=== PATIENT | female | born 1945 | race Caucasian/White ===

== ENCOUNTER 2021-04-15 10:33 | Inpatient (IN) ==
[2021-04-15] MEDS ORDERED: SODIUM CHLORIDE 0.9% 250 ML IV PRN (11:18)
--- NOTE | 2021-04-15 11:28 | Emergency Department Note ---
Impression & Plan Acute on chronic anemia, Pleural effusion, Chronic kidney failure, Abnormal ECG, Chest pain ED Provider Note Name: WILBERT FIGUEROA Age: 76 Sex: F Arrives Via: Ambulance Informant: Patient, Transfer paperwork, Dr Canales of Rehab ED Provider: Kit Kellogg MD Chief Complaint: Weakness Impression: As per Impressions above Medical Decision Makin yr old female with extensive PMH who has never been to this facility before arrives from local Rehab facility for evaluation of anemia. Patient with episodes of chest pain and worsening weakness this morning, found to have anemia and sent here for evaluation. She is in no current discomfort nor has any comp laints. She is quite pale and deconditioned. Patient with bowel surgery last month, complicated by renal failure requiring dialysis, and then apparently iliac artery stenosis, all of which leading to hospitalization at [facility] for the last month. She notes at least 2 episodes requiring dialysis while at [facility], though no reported bleeding nor blood in stool. Labs here confirm her anemia. In setting of chest pain earlier, significant anemia, and her medical history I do feel transfusion indicated emergently and patient consents to this here. She was given 1 U PRBC ordered, and hospitalist consulted who will manage lasix/dialysis. I will not that while she has effusion, she is breathing comfortably and in no respiratory distress. Patient has no chest pain at this time, though her EKG is concerning for inverted T waves, though no previous available for comparison. Obviously would avoid an ticoagulation, but this further makes clear the need for transfusion. Prior Medical Record and Triage/Nursing Notes reviewed by Me Additional history obtained from chart Differentials:Infection, dehydration, metabolic abnormality, hypo/hyperglycemia, electrolyte disturbance, anemia, hypoxia, cardiac sources, intracerebral event, toxicologic, neurologic, as well as other pathologies. Vital Signs: reviewed and remarkable for HTN Interventions: 1 Unit PRBC IV Labs:Reviewed and remarkable for anemia Imaging:one view chest xray bilateral, R>L pulmonary effusions with congestive findings. EKG:Per My Interpretation: Indication Chest pain: NSR 66 bpm, qtc 467 diffuse T wave inversions. No Ectopy. No previous for comparison Cardiac/Tele Monitoring: Cardiac Monitoring: An Order was placed for continuous cardiac monitoring. The monitor shows a rate of 60 with a normal sinus rhythm. Consults:Dr Fredy Chen Hospitalist Plan: Disposition:Hospitalization. Condition: Fair History of Present Illness:76-year-old female with extensive past medical history arrives from local rehab facility for evaluation. Patient is here due to generalized weakness. According to patient and her physician patient is complaining of worsening weakness and episodes of chest discomfort. Per patient and chart it appears patient was admitted to [facility] just after [place] this February for evaluation of abdominal issue. She reportedly had an exploratory laparotomy for which she says bowel was removed. She states after this she required dialysis and has been on dialysis since then. Since then she has been had continuous issues with her anemia and has had multiple transfusions. Patient also notes that she has been dealing with an iliac artery thrombosis but reports that this did not have surgery on it quite yet. She was hospitalized until yesterday when she was transferred to [facility]. This morning she was complaining of weakness and episodic chest pains. Labs reveal she had a hemoglobin of 6. Decision was made to send to emergency department for further evaluation and management. Per physician at rehab the concern was that patient has severe fluid issues, requires dialysis and may require multiple units of blood. They feel that this management would not be able to be done at an [facility] and thus was sent for hospitalization and further management. On evaluation patient states she just feels tired and weak. She notes chest pain earlier but states she feels fine now. She says she has chronic shortness of breath which is unchanged from baseline. She has no current abdominal pain, nausea, vomiting, back pain, leg pain, swelling, headache, fevers, chills, cough, shortness of breath, nausea, vomiting or other symptoms. She denies any current pains. Patient has had no medications prior to arrival. Exertion seems to make things worse and rest makes them better. Patient states she is comfortable with transfusions and has no hesitation with getting a transfusion if necessary. ROS: See above HPI for pertinent positives & negatives. A total of 10 systems reviewed and were otherwise negative. Past Medical History:CAD, COPD, chronic oxygen requirement, GERD, hypertension, hyper triglyceridemia, hypothyroid, skin cancer, subclavian artery stenosis, ulcerative colitis, iliac artery thrombosis, depression, anxiety Past Surgical History:Exploratory laparotomy March 04, 2021, dialysis catheter placement arterial stents cataract surgery, Mohs, tympanostomy, renal artery catheter placements, thromboendarterectomy Family History:CAD, hypertension, diabetes Social History:Previous smoker quit 2001, no drug, no alcohol use Home Medications:See Below Allergies:Amitriptyline, tramadol, spironolactone, Cipro, hydrochlorothiazide, nitrofurantoin, Percocet Vitals:Blood Pressure: 136/62, Pulse 66, RR 19, T 37C, O2 93% on RA Physical Exam: GENERAL: Patient is pale/tired appearing and in no distress. Generalized weakness EYES: No scleral icterus, unremarkable pupils. ENT: Mucous membranes moist, no nasal congestion. NECK: No masses appreciated, nomeningismus, trachea is midline. RESPIRATORY: No dyspnea. Clear to auscultation and equal bilaterally. No wheeze, no rhonchi. CARDIOVASCULAR: Regular rate and rhythm.No murmurs, rubs, gallops appreciated. GASTROINTESTINAL: Vertical mid abdomen surgical incision healing well, no stitches/mine in place. Abdomen soft, non-tender, no peritonitis.Bowel sounds positive.No masses appreciated. BACK: No midline tenderness, no CVA tenderness EXTREMITIES: Normal motion all extremities, no cyanosis, no edema. NEUROLOGIC: Alert and oriented, no acute motor or sensory deficits, no focal weakness, cranial nerves grossly intact. SKIN: No rash, no jaundice, no diaphoresis. PSYCH: Appropriate GCS: 15 ED Course: Times/Reassessments: multiple, stable, and comfortable. Agreeable to transfusion Critical Care: I have personally spent 32 minutes of critical care time in the direct management of this patient. Acute anemia with chest pain and EKG abnormalities requiring blood transfusion. This was a life/limb threatening event. This 32 minutes is in excess of all separately billable procedures. Kit Kellogg MD Past Med/Surg History Social History Smoking Status: Former smoker Preferred Language: Russian Feels Safe at Home: Yes Allergies Allergies Allergy/AdvReac Type Severity Reaction Status Date / Time tramadol Allergy Unresponsiv Unverified 04/15/21 11:26 e acetaminophen [From Percocet] AdvReac Hypotension Unverified 04/15/21 11:26 amitriptyline AdvReac Unresponsiv Unverified 04/15/21 11:26 e ciprofloxacin AdvReac Hives Unverified 04/15/21 11:26 hydrochlorothiazide AdvReac Hypotension Unverified 04/15/21 11:26 nitrofurantoin AdvReac Nausea Unverified 04/15/21 11:26 oxycodone [From Percocet] AdvReac Hypotension Unverified 04/15/21 11:26 spironolactone AdvReac Hypotension Unverified 04/15/21 11:26 [From Aldactone] Home Meds Home Medications Medication Instructions Recorded Confirmed acetaminophen 500 mg tablet 1,000 mg PO Q6H PRN 04/15/21 04/15/21 albuterol sulfate 0.63 mg/3 mL 0.63 mg INHALATION Q4H PRN 04/15/21 04/15/21 solution for nebulization apixaban 5 mg tablet 5 mg PO BID 04/15/21 04/15/21 aspirin 81 mg capsule 81 mg PO DAILY 04/15/21 04/15/21 bisacodyl 10 mg rectal suppository 10 mg [place] DAILY 04/15/21 04/15/21 cyanocobalamin (vitamin B-12) 1,000 mcg PO DAILY 04/15/21 04/15/21 1,000 mcg tablet dextrose 40 % oral gel (Glucose 0 ea PO ONCE 04/15/21 04/15/21 Gel) docusate sodium 100 mg capsule 100 mg PO BID 04/15/21 04/15/21 fluticasone propionate 50 2 spray INTRANASAL DAILY 04/15/21 04/15/21 mcg/actuation nasal spray,suspension folic acid 1 mg tablet 1 mg PO DAILY 04/15/21 04/15/21 gabapentin 100 mg capsule 100 mg PO HS 04/15/21 04/15/21 levothyroxine 50 mcg capsule 50 mcg PO DAILY 04/15/21 04/15/21 magnesium hydroxide 2,400 mg/10 mL 0 ml PO DAILY PRN 04/15/21 04/15/21 oral suspension (Milk Of Magnesia Concentrated) melatonin 3 mg tablet 6 mg PO HS PRN 04/15/21 04/15/21 metoprolol tartrate 50 mg tablet 50 mg PO Q12H 04/15/21 04/15/21 mirtazapine 15 mg tablet 15 mg PO HS 04/15/21 04/15/21 montelukast 10 mg tablet 5 mg PO HS 04/15/21 04/15/21 ondansetron 4 mg disintegrating 4 mg PO Q6H PRN 04/15/21 04/15/21 tablet pantoprazole 40 mg tablet,delayed 40 mg PO DAILY 04/15/21 04/15/21 release (Protonix) polyethylene glycol 3350 17 gram 17 g PO DAILY PRN 04/15/21 04/15/21 oral powder packet (Miralax) sertraline 100 mg tablet 100 mg PO DAILY 04/15/21 04/15/21 Results & Data (ED) Vital Signs Vital Signs - 24 hr 04/15/21 10:43 Temperature 37 C Temperature Source Oral Pulse Rate 66 Respiratory Rate 19 Blood Pressure 136/62 Blood Pressure Mean 86 Pulse Oximetry 93 Oxygen Delivery Method Room Air Sepsis Recent Fever Within 48 Hours No Sepsis New/Unexplained Change in Mental Status No Sepsis Action Taken by Nursing No Action Required Laboratory Data Result diagrams: 04/15/21 10:48 04/15/21 10:48 Lab Results 04/15/21 04/15/21 04/15/21 Range/Units 10:48 10:48 10:48 WBC (4.8-10.8) K/uL RBC (4.2-5.4) M/uL Hgb (12.0-16.0) g/dL Hct (37-47) % MCV (80-100) fL MCH (25-34) pg MCHC (32-36) g/dL RDW Std Deviation (36.4-46.3) fL RDW Coeff of Dru (11.5-14.5) % Plt Count (130-400) K/uL MPV (7.4-10.4) fL Immature Gran % (Auto) % Neut % (Auto) % Lymph % (Auto) % Traverse % (Auto) % Eos % (Auto) % Baso % (Auto) % Neut # (Auto) (1.4-6.5) K/uL Lymph # (Auto) (1.2-3.4) K/uL Traverse # (Auto) (0.11-0.59) K/uL Eos # (Auto) (0-0.5) K/uL Baso # (Auto) (0-0.2) K/uL Immature Gran # (Auto) (0.00-0.02) K/uL Smudge Cells Hypochromasia Anisocytosis PT 16.1 H (9.0-12.0) Seconds INR 1.6 H (0.9-1.1) APTT 39.1 H (21.0-31.0) Seconds PTT Ratio 1.5 Sodium 137 (136-145) mmol/L Potassium 3.4 L (3.5-5.1) mmol/L Chloride 103 (98-107) mmol/L Carbon Dioxide 26 (21-32) mmol/L Anion Gap 8 (3-11) BUN 36 H (6-23) mg/dl Creatinine 2.07 H (0.6-1.2) mg/dl Est Cr Clr Drug Dosing 19.5 ml/min Est GFR ( Amer) 26.3 ml/min Est GFR (Non-Af Amer) 22.7 ml/min BUN/Creatinine Ratio 17.4 (10-20) Glucose 78 (70-99(Fasting)) mg/dl Calcium 7.5 L (8.5-10.1) mg/dl Magnesium 1.6 L (1.7-2.4) mg/dl Total Bilirubin 0.4 (0.2-1.0) mg/dl Direct Bilirubin 0.1 (0-0.2) mg/dl AST 21 (13-39) U/L ALT 8 (7-52) U/L Alkaline Phosphatase 86 (34-104) U/L Troponin I 0.05 H* (0-0.04) ng/ml Total Protein 6.3 (6.0-8.3) gm/dl Albumin 2.7 L (3.4-5.0) gm/dl SARS-CoV-2, RNA, NAAT (NEGATIVE) Blood Type O Positive Blood Type Recheck Antibody Screen NEGATIVE Crossmatch See Detail 04/15/21 04/15/21 04/15/21 Range/Units 10:48 11:47 11:49 WBC 3.82 L (4.8-10.8) K/uL RBC 2.38 L (4.2-5.4) M/uL Hgb 6.8 L* (12.0-16.0) g/dL Hct 22.3 L (37-47) % MCV 93.7 (80-100) fL MCH 28.6 (25-34) pg MCHC 30.5 L (32-36) g/dL RDW Std Deviation 72.3 H (36.4-46.3) fL RDW Coeff of Dru 21.8 H (11.5-14.5) % Plt Count 195 (130-400) K/uL MPV 11.4 H (7.4-10.4) fL Immature Gran % (Auto) 0.5 % Neut % (Auto) 19.6 % Lymph % (Auto) 66.5 % Traverse % (Auto) 12.6 % Eos % (Auto) 0.5 % Baso % (Auto) 0.3 % Neut # (Auto) 0.75 L* (1.4-6.5) K/uL Lymph # (Auto) 2.54 (1.2-3.4) K/uL Traverse # (Auto) 0.48 (0.11-0.59) K/uL Eos # (Auto) 0.02 (0-0.5) K/uL Baso # (Auto) 0.01 (0-0.2) K/uL Immature Gran # (Auto) 0.02 (0.00-0.02) K/uL Smudge Cells Present Hypochromasia Present Anisocytosis Present PT (9.0-12.0) Seconds INR (0.9-1.1) APTT (21.0-31.0) Seconds PTT Ratio Sodium (136-145) mmol/L Potassium (3.5-5.1) mmol/L Chloride (98-107) mmol/L Carbon Dioxide (21-32) mmol/L Anion Gap (3-11) BUN (6-23) mg/dl Creatinine (0.6-1.2) mg/dl Est Cr Clr Drug Dosing ml/min Est GFR ( Amer) ml/min Est GFR (Non-Af Amer) ml/min BUN/Creatinine Ratio (10-20) Glucose (70-99(Fasting)) mg/dl Calcium (8.5-10.1) mg/dl Magnesium (1.7-2.4) mg/dl Total Bilirubin (0.2-1.0) mg/dl Direct Bilirubin (0-0.2) mg/dl AST (13-39) U/L ALT (7-52) U/L Alkaline Phosphatase (34-104) U/L Troponin I (0-0.04) ng/ml Total Protein (6.0-8.3) gm/dl Albumin (3.4-5.0) gm/dl SARS-CoV-2, RNA, NAAT NEGATIVE (NEGATIVE) Blood Type Blood Type Recheck O Positive Antibody Screen Crossmatch Imaging Data Radiologist's Impression: Chest X-Ray 04/15/21 11:19 XR chest 1V portable CLINICAL HISTORY: weakness, anemia TECHNIQUE: Single frontal radiograph of the chest was obtained. Comparison: None available at the time of this dictation. FINDINGS: Dual lumen catheter seen on the right. Calcified aortic knob is seen. Right lower lobe airspace opacity is seen. There is a moderate right pleural effusion. IMPRESSION: Moderate right pleural effusion. Right lower lobe airspace opacity may represent atelectasis, pneumonia, and/or aspiration. ACT 112: Negative or not required by law. Electronically signed by: Marquise Llamas M.D. 04/15/2021 11:56 AM Discharge Plan Visit Data Chief Complaint: Abnormal Labs/Diagnostic Testing Stated Complaint: ABNORMAL LAB ED Provider: Kit Kellogg Discharge Problem: Acute on chronic anemia, Pleural effusion, Chronic kidney failure, Abnormal ECG, Chest pain Patient Disposition: Admitted As Inpatient Condition: Good Discharge Instructions Interventions: ED Discharge Assessment Last Done: 04/15/21 16:33
[2021-04-15 11:39] LABS: Hematocrit (blood only) 22.3 % (37-47); Hemoglobin 6.8 g/dL (12.0-16.0); Mean Corpuscular Hemoglobin 28.6 pg (25-34); Mean Corpuscular Hgb Conc 30.5 g/dL (32-36); Mean Corpuscular Volume 93.7 fL (80-100); Mean Platelet Volume 11.4 fL (7.4-10.4); Platelet Count 195 K/uL (130-400); RDW Coefficient of Variation 21.8 % (11.5-14.5); RDW Standard Deviation 72.3 fL (36.4-46.3); Red Blood Count 2.38 M/uL (4.2-5.4); White Blood Count 3.82 K/uL (4.8-10.8)
[2021-04-15 11:41] LABS: INR 1.6 (0.9-1.1); Partial Thromboplastin Ratio 1.5; Partial Thromboplastin Time 39.1 Seconds (21.0-31.0); Prothrombin Time 16.1 Seconds (9.0-12.0)
[2021-04-15 11:49] LABS: Albumin Level 2.7 gm/dl (3.4-5.0); BUN Creatinine Ratio 17.4 (10-20); Bilirubin Direct 0.1 mg/dl (0-0.2); Bilirubin,Total 0.4 mg/dl (0.2-1.0); Calcium 7.5 mg/dl (8.5-10.1); Creatinine Clr Calc Pharmacy 19.5 ml/min; Est GFR (African American) 26.3 ml/min; Est GFR (Non-African American) 22.7 ml/min; Magnesium 1.6 mg/dl (1.7-2.4); Potassium 3.4 mmol/L (3.5-5.1); Total Protein 6.3 gm/dl (6.0-8.3)
--- NOTE | 2021-04-15 11:58 | XRay Report ---
XR chest 1V portable CLINICAL HISTORY: weakness, anemia TECHNIQUE: Single frontal radiograph of the chest was obtained. Comparison: None available at the time of this dictation. FINDINGS: Dual lumen catheter seen on the right. Calcified aortic knob is seen. Right lower lobe airspace opaci ty is seen. There is a moderate right pleural effusion. IMPRESSION: Moderate right pleural effusion. Right lower lobe airspace opacity may represent atelectasis, pneumon ia, and/or aspiration. ACT 112: Negative or not required by law. Electronically signed by: Marquise Llamas M.D. 04/15/2021 11:56 AM
[2021-04-15 12:03] LABS: Anisocytosis Present; Basophils # (auto) 0.01 K/uL (0-0.2); Basophils % (auto) 0.3 %; Eosinophils # (auto) 0.02 K/uL (0-0.5); Eosinophils % (auto) 0.5 %; Hypochromasia Present; Immature Granulocytes # (auto) 0.02 K/uL (0.00-0.02); Immature Granulocytes % (auto) 0.5 %; Lymphocytes # (auto) 2.54 K/uL (1.2-3.4); Lymphocytes % (auto) 66.5 %; Monocytes # (auto) 0.48 K/uL (0.11-0.59); Monocytes % (auto) 12.6 %; Neutrophils # (auto) 0.75 K/uL (1.4-6.5); Neutrophils % (auto) 19.6 %; Smudge Cells Present
--- NOTE | 2021-04-15 14:29 | History & Physical Report ---
Date of Service April 15, 2021 Assessment & Plan (1) Acute on chronic anemia: Plan: - Admit to telemetry/PCU - Plan to transfuse 1 unit PRBCs, monitor volume status, appears to be euvolemic, will consider Lasix 20 units IV after such as the patient has a right pleural effusion, BNP elevated at 1025, appears euvolemic on exam. - Will replete potassium PO with diuresis, K+ 3.4 on admission -History of GI bleed which occurred during her hospital stay at [facility] Mar 2020, requiring 2 U PRBC to maintain acute blood loss. Last transfusion occurred on 04/13 with hemodialysis. Now receiving blood here for hgb < 7.0. -Outpatient labs at [facility] indicated a hemoglobin of 6.0, 6.6 on repeat labs here at [facility] today -Repeat with a.m. labs to follow - Combination of frequent blood draws, GIB, recent small bowel exploratory laparotomy (2) PVD (peripheral vascular disease): Plan: - S/p left iliac artery stenting on 04/04/21 by vascular surgery at [place] - s/p carotid stenosis s/p CEA with bovine pericardial patch angioplasty 11/2015 - s/p left subclavian stent 03/2014 - s/p left renal artery angioplasty/stent - Continue eliquis 5 mg BID, aspirin 81 mg daily (3) PAF (paroxysmal atrial fibrillation): Plan: - Hx of such, anticoagulated on Eliquis - Rate controlled on metoprolol 50 mg BID (4) CKD (chronic kidney disease): Plan: - New HD, R tunneled cath placed 03/25/21, makes urine, monitor - Consult nephro for possible HD, missed session today, typical T-Th-Sat (5) Carotid stenosis: Plan: - Hx of CEA stenting as per HPI - Stable, chronic (6) Subclavian artery stenosis, left: Plan: - Hs of such,stable - no lab draws/ BP in Left upper extremity (7) History of stent insertion of renal artery: Plan: - Left renal artery stent, stable (8) History of SIADH: Plan: - Na is stable on admission at 137 (9) Recurrent UTI: Plan: - Hx of such, follow UA (10) Hypothyroidism: Plan: - Continue levothyroxine DVT ppx: - teds, scds, eliquis CODE: Full code Dispo: From home, likely to remain in the hospital x 1-2 days History of Present Illness Chief Complaint: Chest pain and shortness of breath Primary Care Provider: NO PCP This is a 76-year-old female who has significant past medical history including PVD, PAF on Eliquis, CKD now on HD, carotiid stenosis s/p left CEA with bovine pericardial patch angioplasty 11/2015, s/p left subclavian artery stent 03/12/14, SIADH, atrophy of the right kidney, left renal artery angioplasty/stent, left subclavian artery angioplasty/stent, recurrent UTI/pyelonephritis, hypothyroidism, chronic anemia, and history of Covid. Hospital stay at [facility] for UTI from 11/15/20-11/17/20 Patient was referred there by infectious disease for antibiotic therapy for multidrug- resistant UTI which had gone on since June. Daughter notes extreme confusion, weakness, and incontinece are her presenting sx for a UTI. Hospital stay at [facility] from 03/03/21 - 04/04/21. where she presented for abdominal pain with ischemic necrosis of small bowel. CTAP revealed pneumatosis intestinalis in the distal small bowel and descending co joey, she was positive for rotavirus. Pt underwent exp lapartomy on 03/05/21 which showed dilated colon with melanosis. No ischemic bowel was identified. Her postop course was complicated by acute respiratory failure, multifocal pneumonia, acute renal failure requiring, A. fib with RVR, delirium, GI bleeding, and multiple electrolyte abnormalities. Her Eliquis during that time had been placed on hold due to GI bleed. And she required 2 units of PRBCs. Patient completed course of antibiotics of cefepime and vancomycin for HCAP in the LLL, and possibly in the RLL. She continued to have diarrhea so cholestyramine was started on 03/31/2021, and the dose increased on 04/02/21. Still is having watery stools. 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 Transfer was initiated to [facility] for further intervention by vascular surgery. Hospital stay at [facility] from - 04/14/21 for vascular surgery, a left iliac stent was placed and was on heparin drip for left iliac thrombus. [facility] Today the patient was transferred to the ER for low hgb count on routine blood draw. She does not have any complaints currently and didn't understand why she was brought to the ER vs to the [facility] for a transfusion and then back to [facility]. Pt denies shortness of breath, STEWART, fever, chills, sweats, cough, sputum production, abd pain, n/v, admits to watery stools which have been going on for a few weeks. She was found to have a Hgb of 6.8 and has been ordered 1 U of PRBC. She was also noted to have a Right pleural effusion and therefore due to possible volume overload, was decided to be admitted to monitoring. Both the patient and her daughter who is present at bedside, are agreeable to this. Family Hx: Father: HTN, Stroke - Mother: DM - Sister: Heart disease, alive Brother: DM II Surgical Hx: as above Social: No smoking or alcohol Allergies Allergy/AdvReac Type Severity Reaction Status Date / Time tramadol Allergy Unresponsiv Unverified 04/15/21 11:26 e acetaminophen [From Percocet] AdvReac Hypotension Unverified 04/15/21 11:26 amitriptyline AdvReac Unresponsiv Unverified 04/15/21 11:26 e ciprofloxacin AdvReac Hives Unverified 04/15/21 11:26 hydrochlorothiazide AdvReac Hypotension Unverified 04/15/21 11:26 nitrofurantoin AdvReac Nausea Unverified 04/15/21 11:26 oxycodone [From Percocet] AdvReac Hypotension Unverified 04/15/21 11:26 spironolactone AdvReac Hypotension Unverified 04/15/21 11:26 [From Aldactone] Home Medications Medication Instructions Recorded Confirmed Type acetaminophen 500 mg tablet 1,000 mg PO Q6H PRN 04/15/21 04/15/21 History albuterol sulfate 0.63 mg/3 mL 0.63 mg INHALATION Q4H PRN 04/15/21 04/15/21 History solution for nebulization apixaban 5 mg tablet 5 mg PO BID 04/15/21 04/15/21 History aspirin 81 mg capsule 81 mg PO DAILY 04/15/21 04/15/21 History bisacodyl 10 mg rectal suppository 10 mg AK DAILY 04/15/21 04/15/21 History cyanocobalamin (vitamin B-12) 1,000 mcg PO DAILY 04/15/21 04/15/21 History 1,000 mcg tablet dextrose 40 % oral gel (Glucose 0 ea PO ONCE 04/15/21 04/15/21 History Gel) docusate sodium 100 mg capsule 100 mg PO BID 04/15/21 04/15/21 History fluticasone propionate 50 2 spray INTRANASAL DAILY 04/15/21 04/15/21 History mcg/actuation nasal spray,suspension folic acid 1 mg tablet 1 mg PO DAILY 04/15/21 04/15/21 History gabapentin 100 mg capsule 100 mg PO HS 04/15/21 04/15/21 History levothyroxine 50 mcg capsule 50 mcg PO DAILY 04/15/21 04/15/21 History magnesium hydroxide 2,400 mg/10 mL 0 ml PO DAILY PRN 04/15/21 04/15/21 History oral suspension (Milk Of Magnesia Concentrated) melatonin 3 mg tablet 6 mg PO HS PRN 04/15/21 04/15/21 History metoprolol tartrate 50 mg tablet 50 mg PO Q12H 04/15/21 04/15/21 History mirtazapine 15 mg tablet 15 mg PO HS 04/15/21 04/15/21 History montelukast 10 mg tablet 5 mg PO HS 04/15/21 04/15/21 History ondansetron 4 mg disintegrating 4 mg PO Q6H PRN 04/15/21 04/15/21 History tablet pantoprazole 40 mg tablet,delayed 40 mg PO DAILY 04/15/21 04/15/21 History release (Protonix) polyethylene glycol 3350 17 gram 17 g PO DAILY PRN 04/15/21 04/15/21 History oral powder packet (Miralax) sertraline 100 mg tablet 100 mg PO DAILY 04/15/21 04/15/21 History Past Med/Surg History Social History Smoking Status: Former smoker Preferred Language: Urdu Feels Safe at Home: Yes Review of Systems Review of Systems: Constitutional: No fever, sweats or chills Eyes: No diplopia, no worsening or blurred vision ENT: + Hard of hearing without hearing aids, no trouble swallowing Respiratory: No cough, sputum, dyspnea at rest or on exertion Cardiovascular: No chest pain, tightness or palpitations Abdomen: No pain, nausea, vomiting, diarrhea or constipation Musculoskeletal: No joint pain, calf pain, swelling Neurologic: + Significant weakness in lower extremities with attempting to walk, working on it at rehab, no numbness/tingling, + balance problems, uses a walker or cane at baseline Psychiatric: No anxiety or depression Skin: No rash or itch Physical Exam Physical Exam: General: awake, alert, no apparent distress, + palor Head: Normocephalic, atraumatic ENT: PERRL, EOMI, no pharyngeal exudate, mucous membranes moist Chest: Diminished breath sounds at right base with crackles, absent in RLL, on 3 L via nc with sats 99% Cardiac: Regular rate and rhythm, + holosystolic grade III murmur, no JVD, normal peripheral pulses, good capillary refill Abdominal: NABS x 4 quadrants, previous scar well healing, soft, nondistended, nontender to palpation, no rebound or guarding Extremities: Normal inspection, no peripheral edema or erythema, calfs nontender to palpation Psych: Normal mood and affect Neuro: AAO x 3, strength intact bilaterally and rated 4/5 in all extremities, no gross motor deficits, speech is clear, no peripheral sensory deficits Results & Data Results & Data ([facility]) Vital Signs (Past 12 Hours) Vital Signs Temp Pulse Resp BP Pulse Ox 04/15/21 14:04 36.8 C 68 20 162/72 H 100 04/15/21 13:34 36.9 C 71 19 146/70 H 100 04/15/21 13:19 36.6 C 68 20 134/60 100 04/15/21 13:03 36.9 C 68 18 131/59 L 100 04/15/21 12:46 36.9 C 67 21 159/63 H 100 04/15/21 10:43 37 C 66 19 136/62 93 Laboratory Results 04/15/21 15:00 Urine Culture - Pending Urine,Indwelling Cath 04/15/21 04/15/21 04/15/21 15:00 12:56 11:49 WBC RBC Hgb Hct MCV MCH MCHC RDW Std Deviation RDW Coeff of Dru Plt Count MPV Immature Gran % (Auto) Neut % (Auto) Lymph % (Auto) Cheyenne % (Auto) Eos % (Auto) Baso % (Auto) Neut # (Auto) Lymph # (Auto) [place]yenne # (Auto) Eos # (Auto) Baso # (Auto) Immature Gran # (Auto) Smudge Cells Hypochromasia Anisocytosis PT INR APTT PTT Ratio Sodium Potassium Chloride Carbon Dioxide Anion Gap BUN Creatinine Est Cr Clr Drug Dosing Est GFR ( Amer) Est GFR (Non-Af Amer) BUN/Creatinine Ratio Glucose Calcium Magnesium Total Bilirubin Direct Bilirubin AST ALT Alkaline Phosphatase Troponin I B-Natriuretic Peptide 1025 H Total Protein Albumin Urine Color Yellow Urine Appearance Turbid A Urine pH 5.0 Ur Specific Elida 1.022 Urine Protein 2+ H Urine Glucose (UA) Negative Urine Ketones Negative Urine Blood 2+ H Urine Nitrite Negative Urine Bilirubin Negative Urine Urobilinogen Negative Ur Leukocyte Esterase 3+ H Urine WBC (Auto) >30 H Urine RBC (Auto) 10-30 H U Hyaline Cast (Auto) 1-5 U Epithel Cells (Auto) >30 H Urine Bacteria (Auto) 2+ H Urine Yeast Budding w/ Hyphae A SARS-CoV-2, RNA, NAAT NEGATIVE Blood Type Blood Type Recheck Antibody Screen Crossmatch 04/15/21 04/15/21 04/15/21 11:47 10:48 10:48 WBC 3.82 L RBC 2.38 L Hgb 6.8 L* Hct 22.3 L MCV 93.7 MCH 28.6 MCHC 30.5 L RDW Std Deviation 72.3 H RDW Coeff of Dru 21.8 H Plt Count 195 MPV 11.4 H Immature Gran % (Auto) 0.5 Neut % (Auto) 19.6 Lymph % (Auto) 66.5 Cheyenne % (Auto) 12.6 Eos % (Auto) 0.5 Baso % (Auto) 0.3 Neut # (Auto) 0.75 L* Lymph # (Auto) 2.54 Cheyenne # (Auto) 0.48 Eos # (Auto) 0.02 Baso # (Auto) 0.01 Immature Gran # (Auto) 0.02 Smudge Cells Present Hypochromasia Present Anisocytosis Present PT INR APTT PTT Ratio Sodium 137 Potassium 3.4 L Chloride 103 Carbon Dioxide 26 Anion Gap 8 BUN 36 H Creatinine 2.07 H Est Cr Clr Drug Dosing 19.5 Est GFR ( Amer) 26.3 Est GFR (Non-Af Amer) 22.7 BUN/Creatinine Ratio 17.4 Glucose 78 Calcium 7.5 L Magnesium 1.6 L Total Bilirubin 0.4 Direct Bilirubin 0.1 AST 21 ALT 8 Alkaline Phosphatase 86 Troponin I 0.05 H* B-Natriuretic Peptide Total Protein 6.3 Albumin 2.7 L Urine Color Urine Appearance Urine pH Ur Specific Elida Urine Protein Urine Glucose (UA) Urine Ketones Urine Blood Urine Nitrite Urine Bilirubin Urine Urobilinogen Ur Leukocyte Esterase Urine WBC (Auto) Urine RBC (Auto) U Hyaline Cast (Auto) U Epithel Cells (Auto) Urine Bacteria (Auto) Urine Yeast SARS-CoV-2, RNA, NAAT Blood Type Blood Type Recheck O Positive Antibody Screen Crossmatch 04/15/21 04/15/21 10:48 10:48 WBC RBC Hgb Hct MCV MCH MCHC RDW Std Deviation RDW Coeff of Dru Plt Count MPV Immature Gran % (Auto) Neut % (Auto) Lymph % (Auto) [place]yenne % (Auto) Eos % (Auto) Baso % (Auto) Neut # (Auto) Lymph # (Auto) [place] # (Auto) Eos # (Auto) Baso # (Auto) Immature Gran # (Auto) Smudge Cells Hypochromasia Anisocytosis PT 16.1 H INR 1.6 H APTT 39.1 H PTT Ratio 1.5 Sodium Potassium Chloride Carbon Dioxide Anion Gap BUN Creatinine Est Cr Clr Drug Dosing Est GFR ( Amer) Est GFR (Non-Af Amer) BUN/Creatinine Ratio Glucose Calcium Magnesium Total Bilirubin Direct Bilirubin AST ALT Alkaline Phosphatase Troponin I B-Natriuretic Peptide Total Protein Albumin Urine Color Urine Appearance Urine pH Ur Specific Elida Urine Protein Urine Glucose (UA) Urine Ketones Urine Blood Urine Nitrite Urine Bilirubin Urine Urobilinogen Ur Leukocyte Esterase Urine WBC (Auto) Urine RBC (Auto) U Hyaline Cast (Auto) U Epithel Cells (Auto) Urine Bacteria (Auto) Urine Yeast SARS-CoV-2, RNA, NAAT Blood Type O Positive Blood Type Recheck Antibody Screen NEGATIVE Crossmatch See Detail Diagnostic Findings Chest X-Ray 04/15/21 11:19 XR chest 1V portable CLINICAL HISTORY: weakness, anemia TECHNIQUE: Single frontal radiograph of the chest was obtained. Comparison: None available at the time of this dictation. FINDINGS: Dual lumen catheter seen on the right. Calcified aortic knob is seen. Right lower lobe airspace opacity is seen. There is a moderate right pleural effusion. IMPRESSION: Moderate right pleural effusion. Right lower lobe airspace opacity may represent atelectasis, pneumonia, and/or aspiration. ACT 112: Negative or not required by law. Electronically signed by: Marquise Llamas M.D. 04/15/2021 11:56 AM ECG Additional Comments: 15-APR-2021 11:24:50 [facility]-EDSTAT ROUTINE RETRIEVAL Normal sinus rhythm ST & Marked T wave abnormality consider anterolateral ischemia Abnormal ECG No previous ECGs available 25mm/[id number]: [id number] by: REFERRED SELF Unconfirmed Vent. rate 66 BPM AK interval 198 ms QRS duration 100 ms QT/QTc 446/467 ms Code Status & VTE Plan Code Status Full code - discussed with patient and daughter at bedside VTE Prophylaxis Plan VTE Prophylaxis will be ordered: Yes Supervising Physician Co-Signing Physician Notes I have seen and examined the patient and have discussed the case with the provider above. I agree with the assessment and plan as stated with the following exceptions. The patient is a 76 yo female with mutliple etiologies for anemia including CKD on hemodialysis, multiple comorbidities which may contribute to anemia of chronic disease, recent GI bleeding, recent prolonged hospitalization with excessive phlebotomy, her post-operative state AND she las a large ecchymotic area on her posterior right flank that is reportedly nontraumatic and related to her recent surgery. She remains on apixaban despite all of this. When she was released from [facility] on 04/14/21 her H/H was 7.0/22.3. She denies any blood per rectum or other overt bleeding and is hemodynamically stable. She has no pain, shortness of breath or lightheadedness currently and doesn't report a large improvement after this unit today. She has a well healing incision site on her abdomen which is soft, NTND. She is mentating clearly and in NAD. Her lungs were clear to auscultation and her heart exam was within normal limits. CXR revealed a pleural effusion which is small and possibly related to her recent issue with pneumonia. Would recheck her H/H in am and if she is feeling better, get her back over to [facility] in the next 1-2 days to continue with her rehab program. It is likely that she may need blood again so close monitoring of her CBC will be crucial in the next few weeks. Repeat CXR in 4-6 weeks is recommended to ensure complete resolution of pleural effusion. DO Fredy
[2021-04-15 15:15] LABS: Appearance Urine Turbid (Clear); Bacteria Urine Automated 2+ (Negative); Bilirubin Urine Negative (Negative); Blood Urine 2+ (Negative); Color Urine Yellow; Epithelial Cell Urine Auto >30 /lpf (0-5); Glucose Urine UA Negative (Negative); Ketones Urine Negative (Negative); Leukocyte Esterase Urine 3+ (Negative); Nitrite Urine Negative (Negative); Protein Urine 2+ (Negative); Specific Gravity Urine 1.022 (1.000-1.030); Urobilinogen Urine Negative (Negative); WBC Urine Automated >30 /hpf (0-5)
[2021-04-15] MEDS ORDERED: FUROSEMIDE INJ 20 MG/2 ML VIAL IV ONE (16:23)
[2021-04-15] MEDS ORDERED: POTASSIUM CHLORIDE CRTAB 20 MEQ TABCR PO STA (16:37)
[2021-04-15] MEDS ORDERED: MELATONIN 3 MG TAB PO PRN (16:40)
[2021-04-15] MEDS ORDERED: ONDANSETRON 4 MG OD TAB PO PRN (16:40)
[2021-04-15] MEDS ORDERED: POLYETHYLENE (MIRALAX) 17 GM PACK PO PRN ×2 (16:40→16:41)
[2021-04-15] MEDS ORDERED: ACETAMINOPHEN 500 MG TAB PO PRN ×2 (16:40→17:20)
[2021-04-15] MEDS ORDERED: FUROSEMIDE 40 MG/4 ML VIAL IV ONE (18:26)
[2021-04-15] MEDS ORDERED: ALBUTEROL 0.083% NEBU SOLN 3 ML VIAL INH PRN (18:51)
--- NOTE | 2021-04-15 20:42 | Ultrasound Report ---
US effusion-chest/mediastinum CLINICAL HISTORY: R pleural effusion, quantify if needs for tap TECHNIQUE: Real-time grayscale sonographic images of the chest wall were obtained. Comparison: None available at the time of this dictation. FINDINGS: There is a right pleural effusion present with a volume estimated at 211 mL. Only trace lef t pleural effusion is present. IMPRESSION: Right pleural effusion with an estimated volume of 211 mL. ACT 112: Negative or not required by law. Electronically signed by: Derick Peterson M.D. 04/15/2021 8:41 PM
[2021-04-15] MEDS: GABAPENTIN 100 MG CAP PO SCH (20:54)
[2021-04-15] MEDS: METOPROLOL TARTRATE 50 MG TAB PO SCH (20:54)
[2021-04-15] MEDS: DOCUSATE SODIUM 100 MG CAP PO SCH (20:54)
[2021-04-15] MEDS: MIRTAZAPINE TAB 15 MG TAB PO SCH (20:55)
[2021-04-15] MEDS ORDERED: APIXABAN 2.5 MG TAB PO SCH (21:00)
[2021-04-15] MEDS: MONTELUKAST SODIUM 10 MG TABLET PO SCH (21:02)
[2021-04-16 06:13] LABS: Hematocrit (blood only) 21.8 % (37-47); Hemoglobin 7.1 g/dL (12.0-16.0); Mean Corpuscular Hemoglobin 30.5 pg (25-34); Mean Corpuscular Hgb Conc 32.6 g/dL (32-36); Mean Corpuscular Volume 93.6 fL (80-100); Mean Platelet Volume 10.6 fL (7.4-10.4); Platelet Count 198 K/uL (130-400); RDW Coefficient of Variation 20.2 % (11.5-14.5); RDW Standard Deviation 65.9 fL (36.4-46.3); Red Blood Count 2.33 M/uL (4.2-5.4); White Blood Count 3.75 K/uL (4.8-10.8)
[2021-04-16 06:28] LABS: BUN Creatinine Ratio 20.5 (10-20); Calcium 7.1 mg/dl (8.5-10.1); Creatinine Clr Calc Pharmacy 21.8 ml/min; Est GFR (African American) 30.1 ml/min; Potassium 3.7 mmol/L (3.5-5.1)
[2021-04-16] MEDS: LEVOTHYROXINE SODIUM 50 MCG TABLET PO SCH (06:52)
[2021-04-16] MEDS: bisacodyL 10 MG SUPP PR SCH (08:30)
[2021-04-16] MEDS: APIXABAN 5 MG TABLET PO SCH ×2 (08:30→17:58)
[2021-04-16] MEDS: SERTRALINE HCL 100 MG TABLET PO SCH (08:47)
[2021-04-16] MEDS: CYANOCOBALAMIN (B-12) 500 MCG TABLET PO SCH (08:48)
[2021-04-16] MEDS: ASPIRIN 81 MG ECTAB PO SCH (08:48)
[2021-04-16] MEDS: FOLIC ACID 1 MG TAB PO SCH (08:48)
[2021-04-16] MEDS: PANTOprazole 40 MG TAB PO SCH (08:48)
[2021-04-16] MEDS: DOCUSATE SODIUM 100 MG CAP PO SCH ×2 (08:48→20:55)
[2021-04-16] MEDS: METOPROLOL TARTRATE 50 MG TAB PO SCH ×2 (08:48→20:55)
[2021-04-16] MEDS: FLUTICASONE PROPIONATE NA SPR 16 GM BTL SCH (08:49)
--- NOTE | 2021-04-16 10:02 | Gastrointestinal Consultation ---
Date of Consultation April 16, 2021 Assessment & Plan (1) Acute on chronic anemia: (2) Pleural effusion: (3) Chronic kidney failure: This is a 76 y/o female with multiple co-morbidities, recent prolonged hospitalization, ex-lap, complicated by multiple post-op phenomena, admitted w/ acute on chronic anemia, pleural effusion. Though she has been requiring dialysis, currently no plans to dialyze today, renal fxn has been improving. She is on Eliquis/ASA, Eliquis is being held. Abd soft, she is pale on exam, VSS. GI consulted to evaluate for possible GI bleed. She has chronic loose/dark stools, however denies any acute changes. Etiology of anemia may be multifactorial, given multiple co-morbidities, has been on dialysis, and on Eliquis/ASA, would be appropriate to r/o GI source of anemia. - Offered EGD/colonoscopy and pt is agreeable - Hold Eliquis - Continue ASA - Trend H&H, transfuse PRN carefully - Monitor and document GI output - Diet as tolerated per primary service until Monday - Starting Monday will switch pt to clear liquid diet - Will order colonoscopy prep starting Monday afternoon - NPO Monday beginning at midnight - Will plan for bidirectional endoscopy on Monday Thank you for allowing us to participate in the care of this patient. Please call with any acute changes, questions or concerns. Please see addendum below with additional recommendation from my supervising physician. Supervising Physician Co-Signing Physician Notes I performed a history and physical examination of the patient today, including specifically on physical exam - soft abdomen. I have discussed the patient's management with the advanced practitioner. Please refer to the nurse practitioner's note for the documented findings and plan of care. No ongoing GI bleeding. EGD/colonoscopy on Monday History of Present Illness Reason for Consultation: GI bleed/Eliquis Requesting Physician: Dr. Amaya Attending Physician: Miles Amaya MD History of Present Illness This is a 76-year-old female with significant PMHx including PVD, PAF on Eliquis, CKD requiring HD, carotid stenosis s/p left CEA, L subclavian artery stent 03/12/14, SIADH, atrophy of the right kidney, left renal artery angioplasty/stent, recurrent UTI/pyelonephritis, hypothyroidism, chronic anemia, and admitted w/ low HGB. Recent prolonged hospital stay at [facility] 03/03/21-04/04/21 - had abd pain, CT w/ ischemic necrosis of SB, + rotavirus, underwent ex-lap 03/05/21, no ischemic bowel identified. Had complicated post-op course - resp failure, PNA, ARF requiring dialysis, A-fib, GIB, delirium, e-lyte derangements. She required pRBC transfusions. Due to loose stools she was put on Questran though is not clear if she taking this now. [place] 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 DC'd to [facility] 04/14/21. OP lab yesterday indicated HGB 7->6 and she was transported from rehab to the ER today. HGB 6.8, crit 23%, BUN 38, creatinine 1.85, elevated BNP. After pRBC transfusion HGB 7.3. She has a normal MCV, MCHC. She is pancytopenic w/ low WBC and plt counts as well; has been getting dialysis, however does not require today, renal fxn improving. Imaging indicated R pleural effusion and was admitted for monitoring. She tells me she's had chronic loose stools going on approx 1-2 years. She states her stools are also ways loose, black, several times a day. Has not had EGD. Her Epic chart notes a history of leukemia but I can't find specifics regarding this. This AM she ate breakfast, also eating snacks in the ER. Appetite is ok. Currently denies abd pain, n/v, hematemesis, dysphagia, heartburn, hematochezia, CP, SOB, syncope, falls. She's had some ecchymosis to the abd wall; pt believes has been there since her last admission. Denies ETOH, tobacco or NSAID use. Last Colonoscopy 2014: Segment in ascending colon suspicious for healing ischemic colitis. Biopsy - Fragments of colonic mucosa show several fragments of acute inflammatory exudate, granulation tissue and adjacent hyperplastic colonic mucosa, consistent with active or acute ulcerative colitis. Allergies Allergy/AdvReac Type Severity Reaction Status Date / Time tramadol Allergy Unresponsiv Unverified 04/15/21 11:26 e acetaminophen [From Percocet] AdvReac Hypotension Unverified 04/15/21 11:26 amitriptyline AdvReac Unresponsiv Unverified 04/15/21 11:26 e ciprofloxacin AdvReac Hives Unverified 04/15/21 11:26 hydrochlorothiazide AdvReac Hypotension Unverified 04/15/21 11:26 nitrofurantoin AdvReac Nausea Unverified 04/15/21 11:26 oxycodone [From Percocet] AdvReac Hypotension Unverified 04/15/21 11:26 spironolactone AdvReac Hypotension Unverified 04/15/21 11:26 [From Aldactone] Home Medications Medication Instructions Recorded Confirmed Type acetaminophen 500 mg tablet 1,000 mg PO Q6H PRN 04/15/21 04/15/21 History albuterol sulfate 0.63 mg/3 mL 0.63 mg INHALATION Q4H PRN 04/15/21 04/15/21 History solution for nebulization apixaban 5 mg tablet 5 mg PO BID 04/15/21 04/15/21 History aspirin 81 mg capsule 81 mg PO DAILY 04/15/21 04/15/21 History bisacodyl 10 mg rectal suppository 10 mg DC DAILY 04/15/21 04/15/21 History cyanocobalamin (vitamin B-12) 1,000 mcg PO DAILY 04/15/21 04/15/21 History 1,000 mcg tablet dextrose 40 % oral gel (Glucose 0 ea PO ONCE 04/15/21 04/15/21 History Gel) docusate sodium 100 mg capsule 100 mg PO BID 04/15/21 04/15/21 History fluticasone propionate 50 2 spray INTRANASAL DAILY 04/15/21 04/15/21 History mcg/actuation nasal spray,suspension folic acid 1 mg tablet 1 mg PO DAILY 04/15/21 04/15/21 History gabapentin 100 mg capsule 100 mg PO HS 04/15/21 04/15/21 History levothyroxine 50 mcg capsule 50 mcg PO DAILY 04/15/21 04/15/21 History magnesium hydroxide 2,400 mg/10 mL 0 ml PO DAILY PRN 04/15/21 04/15/21 History oral suspension (Milk Of Magnesia Concentrated) melatonin 3 mg tablet 6 mg PO HS PRN 04/15/21 04/15/21 History metoprolol tartrate 50 mg tablet 50 mg PO Q12H 04/15/21 04/15/21 History mirtazapine 15 mg tablet 15 mg PO HS 04/15/21 04/15/21 History montelukast 10 mg tablet 5 mg PO HS 04/15/21 04/15/21 History ondansetron 4 mg disintegrating 4 mg PO Q6H PRN 04/15/21 04/15/21 History tablet pantoprazole 40 mg tablet,delayed 40 mg PO DAILY 04/15/21 04/15/21 History release (Protonix) polyethylene glycol 3350 17 gram 17 g PO DAILY PRN 04/15/21 04/15/21 History oral powder packet (Miralax) sertraline 100 mg tablet 100 mg PO DAILY 04/15/21 04/15/21 History Patient History Social History Smoking Status: Former smoker Hx Alcohol Use: No Hx Substance Use: No Preferred Language: [place]alander Communication Ability: Effective Air Hammer Stripper Required: No Beliefs That Will Affect Care: None marital status: / Current Living Situation: Rehab Current Living Situation Comment: [facility] Feels Safe at Home: Yes Safety Concerns: Feels Safe At This Time Assistive Devices: Walker Review of Systems Review of Systems: All systems reviewed & are unremarkable except as noted in HPI & below Physical Exam Constitutional: WD/WN, vitals as above Eyes: sclear anicteric Respiratory: normal respiratory effort, lungs clear to auscultation (other than some crackles right base ) Cardiovascular: RRR, + systolic murmur Gastrointestinal (Abdomen): normal bowel sounds, soft, nontender, no hepatosplenomegaly Previous surgical scar well-healed. Ecchymosis noted to the bilateral lower abd Skin: + pallor, no rashes Psychiatric: A+Ox3, euthymic affect Results & Data ([facility]) Vital Signs (Past 12 Hours) Vital Signs Temp Pulse Pulse Resp BP BP Pulse Ox 04/16/21 08:58 37.1 C 04/16/21 08:30 81 18 164/83 H 97 04/16/21 08:12 85 24 158/87 H 04/16/21 04:30 81 13 159/75 H 95 04/16/21 04:25 81 19 159/78 H 04/16/21 00:37 85 22 140/74 96 04/15/21 23:05 85 18 100/77 94 04/15/21 23:00 75 24 147/65 H 96 Laboratory Results 04/16/21 04/16/21 04/16/21 Range/Units 14:07 05:46 05:46 WBC 3.75 L (4.8-10.8) K/uL RBC 2.33 L (4.2-5.4) M/uL Hgb 7.3 L 7.1 L (12.0-16.0) g/dL Hct 23.0 L 21.8 L (37-47) % MCV 93.6 (80-100) fL MCH 30.5 (25-34) pg MCHC 32.6 (32-36) g/dL RDW Std Deviation 65.9 H (36.4-46.3) fL RDW Coeff of Dru 20.2 H (11.5-14.5) % Plt Count 198 (130-400) K/uL MPV 10.6 H (7.4-10.4) fL Sodium 137 (136-145) mmol/L Potassium 3.7 (3.5-5.1) mmol/L Chloride 107 (98-107) mmol/L Carbon Dioxide 24 (21-32) mmol/L Anion Gap 6 (3-11) BUN 38 H (6-23) mg/dl Creatinine 1.85 H (0.6-1.2) mg/dl Est Cr Clr Drug Dosing 21.8 ml/min Est GFR ( Amer) 30.1 ml/min Est GFR (Non-Af Amer) 26.0 ml/min BUN/Creatinine Ratio 20.5 H (10-20) Glucose 82 (70-99(Fasting)) mg/dl Calcium 7.1 L (8.5-10.1) mg/dl Troponin I (0-0.04) ng/ml Urine WBC (Auto) (0-5) /hpf Urine RBC (Auto) (0-4) /hpf U Hyaline Cast (Auto) (0-5) /lpf U Epithel Cells (Auto) (0-5) /lpf Urine Bacteria (Auto) (Negative) Urine Yeast (None Prsent) Nasal Screen MRSA (PCR) (Negative) Crossmatch 04/16/21 04/15/21 04/15/21 Range/Units 04:25 15:00 10:48 WBC (4.8-10.8) K/uL RBC (4.2-5.4) M/uL Hgb (12.0-16.0) g/dL Hct (37-47) % MCV (80-100) fL MCH (25-34) pg MCHC (32-36) g/dL RDW Std Deviation (36.4-46.3) fL RDW Coeff of Dru (11.5-14.5) % Plt Count (130-400) K/uL MPV (7.4-10.4) fL Sodium (136-145) mmol/L Potassium (3.5-5.1) mmol/L Chloride (98-107) mmol/L Carbon Dioxide (21-32) mmol/L Anion Gap (3-11) BUN (6-23) mg/dl Creatinine (0.6-1.2) mg/dl Est Cr Clr Drug Dosing ml/min Est GFR ( Amer) ml/min Est GFR (Non-Af Amer) ml/min BUN/Creatinine Ratio (10-20) Glucose (70-99(Fasting)) mg/dl Calcium (8.5-10.1) mg/dl Troponin I 0.05 H* (0-0.04) ng/ml Urine WBC (Auto) >30 H (0-5) /hpf Urine RBC (Auto) 10-30 H (0-4) /hpf U Hyaline Cast (Auto) 1-5 (0-5) /lpf U Epithel Cells (Auto) >30 H (0-5) /lpf Urine Bacteria (Auto) 2+ H (Negative) Urine Yeast Budding w/ Hyphae A (None Prsent) Nasal Screen MRSA (PCR) Negative (Negative) Crossmatch 04/15/21 Range/Units 10:48 WBC (4.8-10.8) K/uL RBC (4.2-5.4) M/uL Hgb (12.0-16.0) g/dL Hct (37-47) % MCV (80-100) fL MCH (25-34) pg MCHC (32-36) g/dL RDW Std Deviation (36.4-46.3) fL RDW Coeff of Dru (11.5-14.5) % Plt Count (130-400) K/uL MPV (7.4-10.4) fL Sodium (136-145) mmol/L Potassium (3.5-5.1) mmol/L Chloride (98-107) mmol/L Carbon Dioxide (21-32) mmol/L Anion Gap (3-11) BUN (6-23) mg/dl Creatinine (0.6-1.2) mg/dl Est Cr Clr Drug Dosing ml/min Est GFR ( Amer) ml/min Est GFR (Non-Af Amer) ml/min BUN/Creatinine Ratio (10-20) Glucose (70-99(Fasting)) mg/dl Calcium (8.5-10.1) mg/dl Troponin I (0-0.04) ng/ml Urine WBC (Auto) (0-5) /hpf Urine RBC (Auto) (0-4) /hpf U Hyaline Cast (Auto) (0-5) /lpf U Epithel Cells (Auto) (0-5) /lpf Urine Bacteria (Auto) (Negative) Urine Yeast (None Prsent) Nasal Screen MRSA (PCR) (Negative) Crossmatch See Detail Diagnostic Findings CXR: FINDINGS: Dual lumen catheter seen on the right. Calcified aortic knob is seen. Right lower lobe airspace opacity is seen. There is a moderate right pleural effusion. IMPRESSION: Moderate right pleural effusion. Right lower lobe airspace opacity may represent atelectasis, pneumonia, and/or aspiration. Chest US: FINDINGS: There is a right pleural effusion present with a volume estimated at 211 mL. Only trace left pleural effusion is present. IMPRESSION: Right pleural effusion with an estimated volume of 211 mL. (1) Chronic kidney failure Chronic kidney disease stage: stage 5 Qualified Code(s): N18.5 - Chronic kidney disease, stage 5
[2021-04-16 11:28] LABS: Troponin I 0.05 ng/ml (0-0.04)
--- NOTE | 2021-04-16 14:03 | Consultation Report ---
NEPHROLOGY CONSULTATION NOTE DATE OF SERVICE: 04/16/2021. REASON FOR CONSULTATION: Dialysis. Patient admitted with possible GI bleed and severe anemia. HISTORY OF PRESENT ILLNESS: The patient is a 76-year-old female with multiple medical problems inclu ding recently started dialysis Monday, , Monday. She was sent over from the [facility] because of severe anemia with a hemoglobin in the 6 range with possible GI bleed . Since being admitted, she has received 2 units of blood. She has extensive vascular problems as w ell as recurrent UTI. The patient has a dialysis catheter at this time for dialysis and her last alesia lysis was on Monday at [facility] where she was discharged just 2 days ago. Makenziein jhon this most recent hospital stay, she had, left iliac stent was placed and was on heparin drip for left iliac thrombus. ALLERGIES: List was reviewed in detail. MEDICATIONS: Home medication list was reviewed in detail and is as per the reconciliation list. The patient is on Eliquis 5 twice daily. PAST MEDICAL AND SURGICAL HISTORY: Is very extensive and includes peripheral vascular disease, parox ysmal atrial fibrillation on Eliquis, previously chronic kidney disease, but recently started on hemo dialysis, carotid stenosis, status post left CEA with pericardial patch, left subclavian artery stent , history of SIADH, atrophy of the right kidney, left renal artery angioplasty/stent, recurrent UTI w ith multidrug resistant bacteria as well as history of pyelonephritis, hypothyroidism, chronic anemia and history of COVID, multiple vascular surgeries and interventions done, exploratory laparotomy on 03/05/2021 for dilated colon and ischemic necrosis of the small bowel recently. SOCIAL HISTORY: . No smoking, no alcohol. Her daughter is very involved with her healthcare . REVIEW OF SYSTEMS: At this point, she denies having any new symptoms. She was having some diarrhea with some melanotic stool. Her appetite has been poor, but not any worse than usual. Denies any kelli sea, vomiting, shortness of breath, orthopnea, PND, lower extremity edema. Twelve systems reviewed a nd negative. PHYSICAL EXAMINATION: GENERAL: Elderly white female who appears chronically ill. VITAL SIGNS: Blood pressure is 126/60, pulse rate 77, temperature 37.1, 94% on room air. HEENT: Mucous membranes are moist. NECK: Supple. No jugular venous distention. CHEST: Bilateral clear to auscultation. CARDIOVASCULAR: S1 and S2, irregular. Soft systolic murmur heard. ABDOMEN: Soft, nontender. EXTREMITIES: Show no edema. NEUROLOGIC: She is awake, alert, oriented x3, normal speech. Normal orientation and was able to ans wer complicated questions pretty well. LABORATORY TEST: Hemoglobin was 6.8 on admission, it is up to 7.1 now. WBC count 3.75, platelet cou nt 198. Chest ultrasound shows right pleural effusion with an estimated volume of 211 mL, blood work actually shows surprising results. Her creatinine went down from 2.07 today, despite no dialysis. Sodium is 137, potassium is 3.7, chloride 107, BUN 38, calcium 7.1. BNP 1025. Albumin 2.7. Troponi n I mildly positive. ASSESSMENT AND PLAN: A 76-year-old female with extensive vascular disease and previously chronic kid benitez disease when she was started on chronic dialysis recently during one of the hospitalizations. I have been consulted for dialysis management. 1. Renal failure. It is surprising that her creatinine actually went down to 1.7 from 2 range despi te no dialysis. She has no evidence of electrolyte imbalance. She has pleural effusion, but otherwi se has no evidence of fluid overload. Given improvement in creatinine, I actually wanted to see whet her she has recovered her renal function, so that she does not have to be on dialysis. To test this, we will need daily blood work in the morning. I would also do a 24-hour urine creatinine for the cr eatinine clearance. If her BUN and creatinine and electrolytes remain as it is, she will need dialys is. We do not have to remove the dialysis catheter over the weekend. This can be done as an outpati ent if she indeed has renal recovery. The patient was very happy to hear this. 2. Anemia, likely GI bleed in the setting of chronic anticoagulation with Eliquis. We will defer thi s to primary team. Job ID: [id number]
[2021-04-16 14:21] LABS: Hemoglobin 7.3 g/dL (12.0-16.0)
[2021-04-16] MEDS: MONTELUKAST SODIUM 10 MG TABLET PO SCH (20:55)
[2021-04-16] MEDS: MIRTAZAPINE TAB 15 MG TAB PO SCH (20:55)
[2021-04-16] MEDS: GABAPENTIN 100 MG CAP PO SCH (20:55)
--- NOTE | 2021-04-16 23:57 | Hospitalist Progress Note ---
Date of Service April 16, 2021 Assessment & Plan (1) Acute on chronic anemia: Plan: GI bleed Patient had large dark tarry bowel movement this morning History of GI bleed which occurred during her hospital stay at [facility] Mar 2020, requiring 2 U PRBC to maintain acute blood loss. Last transfusion occurred on 04/13 with hemodialysis. Now receiving blood here for hgb < 7.0. Hemoglobin on admission 6.9 Status post 1 unit PRBC yesterday Repeat hemoglobin this afternoon 7.3 She is on Eliquis and aspirin Case discussed with vascular in [place] recommend to continue aspirin due to the recent stent unless patient has acute hemorrhage We will hold Eliquis since patient had a large dark bowel movement If hemoglobin stable and GI bleed resolved will consider to start on low-dose heparin drip while in the hospital Gastroenterology on board Plan for EGD and colonoscopy on Monday to evaluate further anemia and GI bleed We will continue monitor H&H daily (2) PVD (peripheral vascular disease): Plan: - S/p left iliac artery stenting on 04/04/21 by vascular surgery at [place] - s/p carotid stenosis s/p CEA with bovine pericardial patch angioplasty 11/2015 - s/p left subclavian stent 03/2014 - s/p left renal artery angioplasty/stent - Continue aspirin 81 mg daily -We will hold Eliquis in the meantime due to the GI bleed (3) PAF (paroxysmal atrial fibrillation): Plan: - Hx of such, anticoagulated on Eliquis - Rate controlled on metoprolol 50 mg BID -Eliquis on hold. If GI bleed resolves, will consider low-dose heparin drip while inpatient (4) CKD (chronic kidney disease): Plan: - New HD, R tunneled cath placed 03/25/21, makes urine, monitor -Nephrology on board -Continue hemodialyzed tomorrow (5) Carotid stenosis: Plan: - Hx of CEA stenting as per HPI - Stable, chronic -Continue aspirin (6) Subclavian artery stenosis, left: Plan: - Hs of such,stable - no lab draws/ BP in Left upper extremity -Continue aspirin (7) History of stent insertion of renal artery: Plan: - Left renal artery stent, stable (8) History of SIADH: Plan: - Na is stable on admission at 137 Stable (9) Recurrent UTI: Plan: Urine culture grew gram-negative bacilli Will start on Rocephin IV Will follow urine sensitivity - (10) Hypothyroidism: Plan: Continue levothyroxine DVT ppx: teds, scds due to GI bleed CODE: Full code Dispo: We will discharge once medically stable Admission and Anticipated Discharge Date Admission Date: April 15, 2021 Subjective Patient was seen and evaluated for follow-up of anemia Lying in bed with no acute distress Nurse said patient had a large dark tarry bowel movement this morning Hemoglobin 7.1 this morning after received 1 unit of PRBC last night Patient said that she feels fine Denies any chest pain, palpitation, dizziness, and abdominal pain Review of Systems Review of Systems: All systems reviewed & are unremarkable except as noted in Subjective Physical Exam Physical Exam: General- No acute distress Head- atraumatic Eyes- PERRL, EOMI, ENT- oropharynx clear Neck- supple, no JVD Lungs- clear to auscultation Heart- +murmur Abdomen- normal bowel sounds, soft, nontender Extremities- no calf tenderness Neuro- alert, oriented x 3; PERRL, EOMI; no facial palsy; no dysarthria Skin- warm & dry Results & Data Results & Data ([facility]) Vital Signs (Past 12 Hours) Vital Signs Temp Pulse Resp BP Pulse Ox 04/16/21 23:48 36.8 C 87 16 166/68 H 95 04/16/21 18:00 36.8 C 82 20 121/86 96 04/16/21 12:12 77 20 126/60 94
[2021-04-17] MEDS: LEVOTHYROXINE SODIUM 50 MCG TABLET PO SCH (04:14)
[2021-04-17] MEDS: cefTRIAXone SODIUM 1,000 MG in DEXTROSE 5% 50 ML IV SCH (04:14)
--- NOTE | 2021-04-17 06:03 | Electrocardiogram Report ---
Test Reason : Blood Pressure : / mmHG Vent. Rate : 066 BPM Atrial Rate : 066 BPM P-R Int : 198 ms QRS Dur : 100 ms QT Int : 446 ms P-R-T Axes : 049 010 211 degrees QTc Int : 467 ms Normal sinus rhythm T wave abnormality, consider inferior ischemia Abnormal ECG No previous ECGs available Confirmed by Kevan Huynh ([id number]) on 04/17/2021 6:03:26 AM Referred By: REFERRED SELF Confirmed By:Kevan Huynh
[2021-04-17 06:24] LABS: Hematocrit (blood only) 22.4 % (37-47); Hemoglobin 7.1 g/dL (12.0-16.0); Mean Corpuscular Hemoglobin 29.6 pg (25-34); Mean Corpuscular Hgb Conc 31.7 g/dL (32-36); Mean Corpuscular Volume 93.3 fL (80-100); Mean Platelet Volume 11.7 fL (7.4-10.4); Platelet Count 166 K/uL (130-400); RDW Coefficient of Variation 20.7 % (11.5-14.5); RDW Standard Deviation 68.1 fL (36.4-46.3)
[2021-04-17 06:31] LABS: BUN Creatinine Ratio 21.4 (10-20); Creatinine Clr Calc Pharmacy 24.1 ml/min; Est GFR (African American) 33.8 ml/min; Est GFR (Non-African American) 29.2 ml/min; Potassium 3.2 mmol/L (3.5-5.1)
--- NOTE | 2021-04-17 07:47 | Nephrology Progress Note ---
Date of Service April 17, 2021 Assessment & Plan Admission and Anticipated Discharge Date Admission Date: April 15, 2021 Subjective S---No new issues. Hgb remains stable. renal function improving. PHYSICAL EXAMINATION: GENERAL: Elderly white female who appears chronically ill. HEENT: Mucous membranes are moist. NECK: Supple. No jugular venous distention. CHEST: Bilateral clear to auscultation. CARDIOVASCULAR: S1 and S2, irregular. Soft systolic murmur heard. ABDOMEN: Soft, nontender. EXTREMITIES: Show no edema. NEUROLOGIC: She is awake, alert, oriented x3, normal speech. Normal orientati on and was able to answer complicated questions pretty well. LABORATORY TEST: K low and Creat even better ASSESSMENT AND PLAN: A 76-year-old female with extensive vascular disease and previously chronic kidney disease when she was started on chronic dialysis recently during one of the hospitalizations. I have been consulted for dialysis management. 1. Renal failure. It is surprising that her creatinine actually went down to 1.7 from 2 range despite no dialysis. She has no evidence of electrolyte imbalance. She has pleural effusion, but otherwise has no evidence of fluid overload. Given improvement in creatinine, I actually wanted to see whether she has recovered her renal function, so that she does not have to be on dialysis. To test this, we will need daily blood work in the morning. I would also do a 24-hour urine creatinine for the creatinine clearance--has not been done yet. Will wait for future.. Bun and creat actually got even better so no dialysis. We do not have to remove the dialysis catheter over the weekend. This can be done as an outpatient if she indeed has renal recovery. The patient was very happy to hear this. 2. Anemia, likely GI bleed in the setting of chronic anticoagulation with Eliquis. We will defer this to primary team. Results & Data ([facility]) Vital Signs (Past 12 Hours) Vital Signs Temp Pulse Resp BP Pulse Ox 04/16/21 23:48 36.8 C 87 16 166/68 H 95
[2021-04-17] MEDS: DOCUSATE SODIUM 100 MG CAP PO SCH ×2 (08:03→21:55)
[2021-04-17] MEDS: bisacodyL 10 MG SUPP PR SCH (08:03)
[2021-04-17] MEDS: APIXABAN 5 MG TABLET PO SCH ×2 (08:03→18:49)
[2021-04-17] MEDS: FOLIC ACID 1 MG TAB PO SCH (08:43)
[2021-04-17] MEDS: METOPROLOL TARTRATE 50 MG TAB PO SCH ×2 (08:43→21:41)
[2021-04-17] MEDS: CYANOCOBALAMIN (B-12) 500 MCG TABLET PO SCH (08:43)
[2021-04-17] MEDS: ASPIRIN 81 MG ECTAB PO SCH (08:43)
[2021-04-17] MEDS: PANTOprazole 40 MG TAB PO SCH (08:43)
[2021-04-17] MEDS: SERTRALINE HCL 100 MG TABLET PO SCH (08:43)
[2021-04-17] MEDS: FLUTICASONE PROPIONATE NA SPR 16 GM BTL SCH (08:44)
[2021-04-17 12:05] LABS: KPC Carbapenemase NOT DETECTED (NotDetected); NDM Carbapenemase NOT DETECTED (NotDetected)
[2021-04-17] MEDS: GABAPENTIN 100 MG CAP PO SCH (21:40)
[2021-04-17] MEDS: MONTELUKAST SODIUM 10 MG TABLET PO SCH (21:41)
[2021-04-17] MEDS: MIRTAZAPINE TAB 15 MG TAB PO SCH (21:41)
--- NOTE | 2021-04-17 23:53 | Hospitalist Progress Note ---
Date of Service April 17, 2021 Assessment & Plan (1) Acute on chronic anemia: Plan: GI bleed Patient had large dark tarry bowel movement this morning History of GI bleed which occurred during her hospital stay at [facility] Mar 2020, requiring 2 U PRBC to maintain acute blood loss. Last transfusion occurred on 04/13 with hemodialysis. Now receiving blood here for hgb < 7.0. Hemoglobin on admission 6.9 Status post 1 unit PRBC yesterday Repeat hemoglobin this 7.1 today She is on Eliquis and aspirin outpatient Case discussed with vascular in [place] recommend to continue aspirin due to the recent stent unless patient has acute hemorrhage We will hold Eliquis since patient had a large dark bowel movement If hemoglobin stable and GI bleed resolved will consider to start on low-dose heparin drip while in the hospital Discussed with granddaughter in details about holding Eliquis due to recurrent episode of dark and brown stools Patient and granddaughter understand the risk of holding Eliquis that can lead to clot and stroke Gastroenterology on board Plan for EGD and colonoscopy on Monday to evaluate further anemia and GI bleed We will continue monitor H&H daily (2) PVD (peripheral vascular disease): Plan: - S/p left iliac artery stenting on 04/04/21 by vascular surgery at [place] - s/p carotid stenosis s/p CEA with bovine pericardial patch angioplasty 11/2015 - s/p left subclavian stent 03/2014 - s/p left renal artery angioplasty/stent - Continue aspirin 81 mg daily -Continue to hold Eliquis in the meantime due to the GI bleed (3) PAF (paroxysmal atrial fibrillation): Plan: - Hx of such, anticoagulated on Eliquis - Rate controlled on metoprolol 50 mg BID -Eliquis on hold. If GI bleed resolves, will consider low-dose heparin drip while inpatient (4) CKD (chronic kidney disease): Plan: - New HD, R tunneled cath placed 03/25/21, makes urine, monitor -Nephrology on board -Continue hemodialyzed tomorrow (5) Carotid stenosis: Plan: - Hx of CEA stenting as per HPI - Stable, chronic -Continue aspirin (6) Subclavian artery stenosis, left: Plan: - Hs of such,stable - no lab draws/ BP in Left upper extremity -Continue aspirin (7) History of stent insertion of renal artery: Plan: - Left renal artery stent, stable (8) History of SIADH: Plan: - Na is stable on admission at 137 Stable (9) Recurrent UTI: Plan: Urine culture grew gram-negative bacilli Will start on Rocephin IV Will follow urine sensitivity - (10) Hypothyroidism: Plan: Continue levothyroxine DVT ppx: teds, scds due to GI bleed CODE: Full code Dispo: We will discharge once medically stable Admission and Anticipated Discharge Date Admission Date: April 15, 2021 Subjective Patient was seen and examined for follow-up of anemia and dark tarry bowel movement Lying in bed with no acute distress with granddaughter at bedside Nurse said patient has been having diarrhea with episode of dark and brown bowel movement Earlier when therapy was working with her to the bathroom she felt her legs gave up on her and staff had to lower her to the ground She said she did not have any chest pain shortness of breath or dizziness but felt her leg were weak Discussed with granddaughter in details about holding Eliquis due to recurrent episode of dark and brown stools Patient and daughter understand the risk of holding Eliquis that can lead to clot and stroke She is scheduled to have scope done on Monday Denies any chest pain, palpitation, dizziness, shortness of breath. Review of Systems Review of Systems: All systems reviewed & are unremarkable except as noted in Subjective Physical Exam Physical Exam: General- No acute distress Head- atraumatic Eyes- PERRL, EOMI, ENT- oropharynx clear Neck- supple, no JVD Lungs- clear to auscultation Heart- +murmur Abdomen- normal bowel sounds, soft, nontender Extremities- no calf tenderness Neuro- alert, oriented x 3; PERRL, EOMI; no facial palsy; no dysarthria Skin- warm & dry Results & Data Results & Data ([facility]) Vital Signs (Past 12 Hours) Vital Signs Temp Pulse Pulse Resp BP Pulse Ox 04/17/21 23:41 78 04/17/21 22:55 37.6 C H 86 16 126/65 94 04/17/21 21:37 37.8 C H 90 20 147/74 H 96 04/17/21 16:00 37.1 C 92 H 31 H 174/98 H 96
[2021-04-18] MEDS: cefTRIAXone SODIUM 1,000 MG in DEXTROSE 5% 50 ML IV SCH (05:34)
[2021-04-18] MEDS: LEVOTHYROXINE SODIUM 50 MCG TABLET PO SCH (05:34)
[2021-04-18 07:13] LABS: Hemoglobin 7.1 g/dL (12.0-16.0); Mean Corpuscular Hgb Conc 30.9 g/dL (32-36); Mean Platelet Volume 11.7 fL (7.4-10.4); Platelet Count 185 K/uL (130-400); RDW Coefficient of Variation 22.4 % (11.5-14.5); RDW Standard Deviation 77.1 fL (36.4-46.3); Red Blood Count 2.37 M/uL (4.2-5.4); White Blood Count 3.83 K/uL (4.8-10.8)
[2021-04-18 07:34] LABS: BUN Creatinine Ratio 21.3 (10-20); Creatinine Clr Calc Pharmacy 30.3 ml/min; Est GFR (African American) 38.8 ml/min; Est GFR (Non-African American) 33.5 ml/min; Potassium 3.4 mmol/L (3.5-5.1)
[2021-04-18] MEDS: DOCUSATE SODIUM 100 MG CAP PO SCH ×2 (07:39→20:04)
[2021-04-18] MEDS: METOPROLOL TARTRATE 50 MG TAB PO SCH ×2 (07:40→20:02)
[2021-04-18] MEDS: ASPIRIN 81 MG ECTAB PO SCH (07:41)
[2021-04-18] MEDS: SERTRALINE HCL 100 MG TABLET PO SCH (07:41)
[2021-04-18] MEDS: PANTOprazole 40 MG TAB PO SCH (07:42)
[2021-04-18] MEDS: FOLIC ACID 1 MG TAB PO SCH (07:43)
[2021-04-18] MEDS: FLUTICASONE PROPIONATE NA SPR 16 GM BTL SCH (07:45)
[2021-04-18] MEDS: CYANOCOBALAMIN (B-12) 500 MCG TABLET PO SCH (07:45)
[2021-04-18] MEDS: bisacodyL 10 MG SUPP PR SCH (10:13)
--- NOTE | 2021-04-18 11:57 | Gastroenterology Progress Note ---
Date of Service April 18, 2021 Assessment & Plan Admission and Anticipated Discharge Date Admission Date: April 15, 2021 Subjective Patient was seen and examined today, doing well. Abdomen is soft and nontender. H/H stable. Recommend: EGD/colonoscopy tomorrow. Bowel prep today. NPO after midnight. Results & Data ([facility]) Vital Signs (Past 12 Hours) Vital Signs Temp Pulse Pulse Resp BP Pulse Ox 04/18/21 11:23 37.7 C H 73 18 135/66 96 04/18/21 08:00 84 04/18/21 07:56 37.6 C H 84 19 130/69 94 04/18/21 04:25 37.2 C 70 16 120/69 96 04/18/21 01:39 77
--- NOTE | 2021-04-18 13:15 | Nephrology Progress Note ---
Date of Service April 18, 2021 Assessment & Plan Admission and Anticipated Discharge Date Admission Date: April 15, 2021 Subjective Subjective S---No new issues. Hgb remains stable. renal function improving without dialysis. making good amount of urine. PHYSICAL EXAMINATION: GENERAL: Elderly white female who appears chronically ill. HEENT: Mucous membranes are moist. NECK: Supple. No jugular venous distention. CHEST: Bilateral clear to auscultation. CARDIOVASCULAR: S1 and S2, irregular. Soft systolic murmur heard. ABDOMEN: Soft, nontender. EXTREMITIES: Show no edema. NEUROLOGIC: She is awake, alert, oriented x3, normal speech. Normal orientation and was able to answer complicated questions pretty well. LABORATORY TEST: K low and Creat even better ASSESSMENT AND PLAN: A 76-year-old female with extensive vascular disease and previously chronic kidney disease when she was started on chronic dialysis recently during one of the hospitalizations. I have been consulted for dialysis management. 1. Renal failure. It is surprising that her creatinine actually went down to 1.7 from 2 range despite no dialysis. She has no evidence of electrolyte imbalance. She has pleural effusion, but otherwise has no evidence of fluid overload. Given improvement in creatinine, I actually wanted to see whether she has recovered her renal function, so that she does not have to be on dialysis. To test this, we will need daily blood work in the morning. 24-hour urine creatinine for the creatinine clearance--has not been done yet. Will wait for future. Bun and creat actually got even better so no dialysis. We do not have to remove the dialysis catheter over the weekend. This can be done as an outpatient if she indeed has renal recovery. The patient was very happy to hear this. 2. Anemia, likely GI bleed in the setting of chronic anticoagulation with Eliquis. getting EGD and colo tomorrow. Results & Data ([facility]) Vital Signs (Past 12 Hours) Vital Signs Temp Pulse Pulse Resp BP Pulse Ox 04/18/21 11:23 37.7 C H 73 18 135/66 96 04/18/21 08:00 84 04/18/21 07:56 37.6 C H 84 19 130/69 94 04/18/21 04:25 37.2 C 70 16 120/69 96 04/18/21 01:39 77
[2021-04-18] MEDS ORDERED: LAVAGE SOLUTION 4000ML PO SCH (17:00)
[2021-04-18] MEDS: MIRTAZAPINE TAB 15 MG TAB PO SCH (20:02)
[2021-04-18] MEDS: MONTELUKAST SODIUM 10 MG TABLET PO SCH (20:03)
[2021-04-18] MEDS: GABAPENTIN 100 MG CAP PO SCH (20:03)
--- NOTE | 2021-04-18 23:47 | Hospitalist Progress Note ---
Date of Service April 18, 2021 Assessment & Plan (1) Acute on chronic anemia: Plan: GI bleed Patient had large dark tarry bowel movement this morning History of GI bleed which occurred during her hospital stay at [facility] Mar 2020, requiring 2 U PRBC to maintain acute blood loss. Last transfusion occurred on 04/13 with hemodialysis. Now receiving blood here for hgb < 7.0. Hemoglobin on admission 6.9 Status post 1 unit PRBC yesterday Repeat hemoglobin this 7.1 today She is on Eliquis and aspirin outpatient Case discussed with vascular in [place] recommend to continue aspirin due to the recent stent unless patient has acute hemorrhage We will hold Eliquis since patient had a large dark bowel movement If hemoglobin stable and GI bleed resolved will consider to start on low-dose heparin drip while in the hospital Discussed with granddaughter in details about holding Eliquis due to recurrent episode of dark and brown stools Patient and granddaughter understand the risk of holding Eliquis that can lead to clot and stroke Gastroenterology on board Plan for EGD and colonoscopy on Monday to evaluate further anemia and GI bleed Will make NPO after midnight Continue clear liquid diet today We will continue monitor H&H daily (2) PVD (peripheral vascular disease): Plan: - S/p left iliac artery stenting on 04/04/21 by vascular surgery at [place] - s/p carotid stenosis s/p CEA with bovine pericardial patch angioplasty 11/2015 - s/p left subclavian stent 03/2014 - s/p left renal artery angioplasty/stent - Continue aspirin 81 mg daily - Continue to hold Eliquis due to the GI bleed (3) PAF (paroxysmal atrial fibrillation): Plan: - Hx of such, anticoagulated on Eliquis - Rate controlled on metoprolol 50 mg BID -Eliquis on hold. If GI bleed resolves, will consider low-dose heparin drip while inpatient (4) CKD (chronic kidney disease): Plan: - New HD, R tunneled cath placed 03/25/21, makes urine, monitor -Nephrology on board -Continue hemodialyzed tomorrow (5) Carotid stenosis: Plan: - Hx of CEA stenting as per HPI - Stable, chronic -Continue aspirin (6) Subclavian artery stenosis, left: Plan: - Hs of such,stable - no lab draws/ BP in Left upper extremity -Continue aspirin (7) History of stent insertion of renal artery: Plan: - Left renal artery stent, stable (8) History of SIADH: Plan: - Na is stable on admission at 137 - Na 141 today Stable (9) Recurrent UTI: Plan: Urine culture grew gram-negative bacilli Will start on Rocephin IV Will follow urine sensitivity - (10) Hypothyroidism: Plan: Continue levothyroxine DVT ppx: teds, scds due to GI bleed CODE: Full code Dispo: We will discharge once medically stable Admission and Anticipated Discharge Date Admission Date: April 15, 2021 Subjective Patient was seen and examined for follow-up of anemia and dark tarry bowel movement Lying in bed with no acute distress with granddaughter at bedside Pt said that she continues to have dark and brown bowel movement She is scheduled to have scope done on Monday Denies any chest pain, palpitation, dizziness, shortness of breath. Review of Systems Review of Systems: All systems reviewed & are unremarkable except as noted in Subjective Physical Exam Physical Exam: General- No acute distress Head- atraumatic Eyes- PERRL, EOMI, ENT- oropharynx clear Neck- supple, no JVD Lungs- clear to auscultation Heart- +murmur Abdomen- normal bowel sounds, soft, nontender Extremities- no calf tenderness Neuro- alert, oriented x 3; PERRL, EOMI; no facial palsy; no dysarthria Skin- warm & dry Results & Data Results & Data ([facility]) Vital Signs (Past 12 Hours) Vital Signs Temp Pulse Pulse Resp BP Pulse Ox 04/18/21 22:54 77 04/18/21 19:52 37.4 C 83 16 136/79 94 04/18/21 14:52 37.5 C 78 18 129/68 96
[2021-04-19] MEDS: LEVOTHYROXINE SODIUM 50 MCG TABLET PO SCH (05:40)
[2021-04-19] MEDS: cefTRIAXone SODIUM 1,000 MG in DEXTROSE 5% 50 ML IV SCH (05:50)
--- NOTE | 2021-04-19 08:19 | Gastroenterology Progress Note ---
Date of Service April 19, 2021 Assessment & Plan (1) Acute on chronic anemia: (2) Pleural effusion: (3) Chronic kidney failure: Plan: 76 y/o female with multiple co-morbidities, recent prolonged hospitalization, ex-lap, complicated by multiple post-op phenomena, admitted w/ acute on chronic anemia, pleural effusion. Though she has been requiring dialysis, currently no plans to dialyze today, renal fxn has been improving. She is on Eliquis/ASA, Eliquis is being held. Abd soft, she is pale on exam, VSS. GI consulted to evaluate for possible GI bleed. She has chronic loose/dark stools, however denies any acute changes. Etiology of anemia may be multi factorial, given multiple co-morbidities, has been on dialysis, and on Eliquis/ASA, would be appropriate to r/o GI source of anemia. - NPO for EGD/Colonoscopy today - Please refer to prior notes for additional plans/recommendations Thank you for allowing us to participate in the care of this patient. Please call with any acute changes, questions or concerns. Please see addendum below with additional recommendation from my supervising physician. Admission and Anticipated Discharge Date Admission Date: April 15, 2021 Supervising Physician Co-Signing Physician Notes I saw and evaluated the patient. We are planning to do upper endoscopy and colonoscopy today for further evaluation of the anemia. We have discussed the risks and benefits include bleeding, infection, perforation, pain and need for follow-up studies Subjective Pt was seen and evaluated, chart reviewed. No abd pain. No nausea, vomiting. Moving clear bowels. She is unsure if she is having black or bloody stools. Review of Systems Review of Systems: All systems reviewed & are unremarkable except as noted in HPI & below Physical Exam Constitutional: WD/WN, vitals as above Neck: trachea midline, no thyromegaly Respiratory: normal respiratory effort, lungs clear to auscultation Cardiovascular: Rate/Rhythm: regular rate and regular rhythm Gastrointestinal (Abdomen): normal bowel sounds, soft, nontender, no hepatosplenomegaly Skin: no rashes, warm and dry Results & Data ([facility]) Vital Signs (Past 12 Hours) Vital Signs Temp Pulse Pulse Resp BP Pulse Ox 04/19/21 07:29 37.2 C 78 16 166/84 H 94 04/19/21 07:19 83 04/19/21 04:48 37.1 C 78 18 119/69 94 04/19/21 00:00 37.0 C 78 18 134/77 93 04/18/21 22:54 77 Laboratory Results 04/15/21 Range/Units 10:48 Crossmatch See Detail (1) Chronic kidney failure Chronic kidney disease stage: stage 5 Qualified Code(s): N18.5 - Chronic kidney disease, stage 5
--- NOTE | 2021-04-19 09:41 | History & Physical Bridge Note ---
Date of Service April 19, 2021 History & Physical Bridge Note I have examined the patient, reviewed the History & Physical and in the interval since the performance of the History & Physical I have noted the following changes of clinical significance: no changes noted
[2021-04-19] MEDS ORDERED: PROPOFOL IV EMULSION 10 MG/ML 20 ML VIAL IV ONE (09:43)
[2021-04-19] MEDS ORDERED: LIDOCAINE 2% 2 ML VIAL/AMP(20MG/ML) INFIL ONE (09:43)
--- NOTE | 2021-04-19 09:51 | Anesthesiology Consultation ---
Date of Service April 19, 2021 Assessment & Plan Chart Review Chart Review: Acceptable Risk for Surgery and Patient NOT seen in Pre Admission Testing Consults Requested none ASA ASA4 Proposed Anesthesia Anesthesia Type: MAC Risk / Benefits Reviewed With: PT / POA / Parent / Guardian, Accepts Plan and Informed Consent Obtained History Surgery Operation Date: 04/19/21 16:00 Proposed Procedures p Colonoscopy EGD Dr Nuno Reina, DO Height/Weight Height: 5 ft 7 in Weight: 62.6 kg Allergies Allergy/AdvReac Type Severity Reaction Status Date / Time tramadol Allergy Unresponsiv Unverified 04/15/21 11:26 e acetaminophen [From Percocet] AdvReac Hypotension Unverified 04/15/21 11:26 amitriptyline AdvReac Unresponsiv Unverified 04/15/21 11:26 e ciprofloxacin AdvReac Hives Unverified 04/15/21 11:26 hydrochlorothiazide AdvReac Hypotension Unverified 04/15/21 11:26 nitrofurantoin AdvReac Nausea Unverified 04/15/21 11:26 oxycodone [From Percocet] AdvReac Hypotension Unverified 04/15/21 11:26 spironolactone AdvReac Hypotension Unverified 04/15/21 11:26 [From Aldactone] Medications Home Medications Medication Instructions Recorded Confirmed Last Taken acetaminophen 500 mg tablet 1,000 mg PO Q6H PRN 04/15/21 04/15/21 Unknown albuterol sulfate 0.63 mg/3 mL 0.63 mg INHALATION Q4H PRN 04/15/21 04/15/21 Unknown solution for nebulization apixaban 5 mg tablet 5 mg PO BID 04/15/21 04/15/21 Unknown aspirin 81 mg capsule 81 mg PO DAILY 04/15/21 04/15/21 Unknown bisacodyl 10 mg rectal suppository 10 mg ND DAILY 04/15/21 04/15/21 Unknown cyanocobalamin (vitamin B-12) 1,000 mcg PO DAILY 04/15/21 04/15/21 Unknown 1,000 mcg tablet dextrose 40 % oral gel (Glucose 0 ea PO ONCE 04/15/21 04/15/21 Unknown Gel) docusate sodium 100 mg capsule 100 mg PO BID 04/15/21 04/15/21 Unknown fluticasone propionate 50 2 spray INTRANASAL DAILY 04/15/21 04/15/21 Unknown mcg/actuation nasal spray,suspension folic acid 1 mg tablet 1 mg PO DAILY 04/15/21 04/15/21 Unknown gabapentin 100 mg capsule 100 mg PO HS 04/15/21 04/15/21 Unknown levothyroxine 50 mcg capsule 50 mcg PO DAILY 04/15/21 04/15/21 Unknown magnesium hydroxide 2,400 mg/10 mL 0 ml PO DAILY PRN 04/15/21 04/15/21 Unknown oral suspension (Milk Of Magnesia Concentrated) melatonin 3 mg tablet 6 mg PO HS PRN 04/15/21 04/15/21 Unknown metoprolol tartrate 50 mg tablet 50 mg PO Q12H 04/15/21 04/15/21 Unknown mirtazapine 15 mg tablet 15 mg PO HS 04/15/21 04/15/21 Unknown montelukast 10 mg tablet 5 mg PO HS 04/15/21 04/15/21 Unknown ondansetron 4 mg disintegrating 4 mg PO Q6H PRN 04/15/21 04/15/21 Unknown tablet pantoprazole 40 mg tablet,delayed 40 mg PO DAILY 04/15/21 04/15/21 Unknown release (Protonix) polyethylene glycol 3350 17 gram 17 g PO DAILY PRN 04/15/21 04/15/21 Unknown oral powder packet (Miralax) sertraline 100 mg tablet 100 mg PO DAILY 04/15/21 04/15/21 Unknown Active Medications Generic Name Dose Route Start Last Admin Trade Name Brock PRN Reason Stop Dose Admin Apixaban 5 mg 04/16/21 09:00 04/17/21 18:49 Apixaban 5 Mg Tablet PO 05/16/21 08:59 Not Given BID PATRICIO Aspirin 81 mg 04/16/21 09:00 04/18/21 07:41 Aspirin 81 Mg Ectab PO 05/16/21 08:59 81 mg DAILY PATRICIO Administration Bisacodyl 10 mg 04/16/21 09:00 04/18/21 10:13 Bisacodyl 10 Mg Supp ND 05/16/21 08:59 Not Given DAILY PATRICIO Cyanocobalamin 1,000 mcg 04/16/21 09:00 04/18/21 07:45 Cyanocobalamin 500 Mcg Tablet (Vitamin B-12) PO 05/16/21 08:59 1,000 mcg DAILY PATRICIO Administration Docusate Sodium 100 mg 04/15/21 21:00 04/18/21 20:04 Docusate Sodium 100 Mg Cap PO 05/15/21 20:59 Not Given BID PATRICIO Fluticasone Propionate 2 sprays 04/16/21 09:00 04/18/21 07:45 Fluticasone Propionate Na Spr 16 Gm Btl NA 05/16/21 08:59 2 sprays DAILY PATRICIO Administration Folic Acid 1 mg 04/16/21 09:00 04/18/21 07:43 Folic Acid 1 Mg Tab PO 05/16/21 08:59 1 mg DAILY PATRICIO Administration Gabapentin 100 mg 04/15/21 21:00 04/18/21 20:03 Gabapentin 100 Mg Cap PO 05/15/21 20:59 100 mg HS PATRICIO Administration Ceftriaxone Sodium 1,000 mg/ 50 mls @ 100 mls/hr 04/17/21 03:00 04/19/21 06:20 Dextrose IV 04/22/21 02:59 Infused Q24H PATRICIO Infusion Protocol Levothyroxine Sodium 50 mcg 04/16/21 06:30 04/19/21 05:40 Levothyroxine Sodium 50 Mcg Tablet PO 05/16/21 06:29 50 mcg DAILYBB PATRICIO Administration Metoprolol Tartrate 50 mg 04/15/21 21:00 04/18/21 20:02 Metoprolol Tartrate 50 Mg Tab PO 05/15/21 20:59 50 mg Q12 PATRICIO Administration Mirtazapine 15 mg 04/15/21 21:00 04/18/21 20:02 Mirtazapine Tab 15 Mg Tab PO 05/15/21 20:59 15 mg HS PATRICIO Administration Montelukast Sodium 5 mg 04/15/21 21:00 04/18/21 20:03 Montelukast Sodium 10 Mg Tablet PO 05/15/21 20:59 5 mg HS PATRICIO Administration Pantoprazole Sodium 40 mg 04/16/21 09:00 04/18/21 07:42 Pantoprazole 40 Mg Tab PO 05/16/21 08:59 40 mg DAILY PATRICIO Administration Sertraline HCl 100 mg 04/16/21 09:00 04/18/21 07:41 Sertraline Hcl 100 Mg Tablet PO 05/16/21 08:59 100 mg DAILY PATRICIO Administration Exercise / Class Metabolic Activity III < 4 Walking/Shop/Light housework Past Anesthesia History No Hx of Anesthesia Complications and No Family Hx of Anesthesia Complications History of PONV No Hx of PONV and No Hx of Motion Sickness Social History Smoking Status: Former smoker Hx Alcohol Use: No Hx Substance Use: No Physical Exam Vital Signs Last Vital Signs Temp 37.2 C 04/19/21 07:29 Pulse 78 04/19/21 07:29 Resp 16 04/19/21 07:29 BP 166/84 H 04/19/21 07:29 Pulse Ox 94 04/19/21 07:29 ENMT Mouth: + dentures Thyromental Distance: > or= 3.5 Finger Breadths Mallampati Class: II Neck normal visual inspection Respiratory normal respiratory effort Auscultation: lungs clear to auscultation bilaterally Cardiovascular Rate/Rhythm: regular rate and regular rhythm Chest (Breasts) Chest: + vascular access device or port (R chest niagra catheter) Psychiatric Orientation: alert Testing Laboratory Results 04/18/21 05:47 04/18/21 05:47 PT 16.1 Seconds (9.0-12.0) H 04/15/21 10:48 INR 1.6 (0.9-1.1) H 04/15/21 10:48 APTT 39.1 Seconds (21.0-31.0) H 04/15/21 10:48 Urine Color Yellow 04/15/21 15:00 Urine Appearance Turbid (Clear) A 04/15/21 15:00 Urine pH 5.0 (4.5-7.5) 04/15/21 15:00 Ur Specific [place] 1.022 (1.000-1.030) 04/15/21 15:00 Urine Protein 2+ (Negative) H 04/15/21 15:00 Urine Glucose (UA) Negative (Negative) 04/15/21 15:00 Urine Ketones Negative (Negative) 04/15/21 15:00 Urine Nitrite Negative (Negative) 04/15/21 15:00 Ur Leukocyte Esterase 3+ (Negative) H 04/15/21 15:00 Urine WBC (Auto) >30 /hpf (0-5) H 04/15/21 15:00 Urine RBC (Auto) 10-30 /hpf (0-4) H 04/15/21 15:00 U Hyaline Cast (Auto) 1-5 /lpf (0-5) 04/15/21 15:00 U Epithel Cells (Auto) >30 /lpf (0-5) H 04/15/21 15:00 Urine Bacteria (Auto) 2+ (Negative) H 04/15/21 15:00 Blood Type O Positive 04/15/21 10:48 Antibody Screen NEGATIVE 04/15/21 10:48 04/15/21 15:00 Urine Culture - Final Urine,Indwelling Cath Enterobacter cloacae
[2021-04-19] MEDS: DOCUSATE SODIUM 100 MG CAP PO SCH ×2 (10:07→20:00)
[2021-04-19] MEDS: METOPROLOL TARTRATE 50 MG TAB PO SCH ×2 (10:08→19:59)
[2021-04-19] MEDS ORDERED: PHENYLEPHRINE 100MCG/ML 5ML SYR ONE (10:18)
--- NOTE | 2021-04-19 10:18 | Communication Note ---
Date of Service: April 19, 2021 The patient underwent upper endoscopy and colonoscopy this morning. Colonoscopy was notable for a fair bowel preparation. Findings mild esophagitis Mild gastritis Internal hemorrhoids Recommendations continue daily proton pump inhibitor repeat upper endoscopy in 3 months repeat colonoscopy in 1 year due to suboptimal bowel preparation please call with any questions or concerns
--- NOTE | 2021-04-19 10:28 | GI REPORT ---
Patient Name: Mayte Calhoun Procedure Date: 04/19/2021 9:54 AM Date of : 1945 Admit Type: Inpatient Age: 76 Gender: Female Attending MD: Alfa Reina DO Procedure: Upper GI endoscopy Providers: Alfa Reina DO Referring MD: Referred Self Indications: Melena Medicines: Monitored Anesthesia Care Complications: No immediate complications. Estimated blood loss: Minimal. Estimated Blood Loss: Estimated blood loss was minimal. Procedure: Pre-Anesthesia Assessment: - Prior to the procedure, a History and Physical was performed, and patient medications, allergies and sensitivities were reviewed. The patient's tolerance of previous anesthesia was reviewed. - The risks and benefits of the procedure and the sedation options and risks were discussed with the patient. All questions were answered and informed consent was obtained. - Patient identification and proposed procedure were verified prior to the procedure by the physician, the nurse and the cooking chef. The procedure was verified in the procedure room. - Pre-procedure physical examination revealed no contraindications to sedation. - ASA Grade Assessment: IV - A patient with severe systemic disease that is a constant threat to life. - After reviewing the risks and benefits, the patient was deemed in satisfactory condition to undergo the procedure. - The anesthesia plan was to use monitored anesthesia care (MAC). - Immediately prior to administration of medications, the patient was re-assessed for adequacy to receive sedatives. - The heart rate, respiratory rate, oxygen saturations, blood pressure, adequacy of pulmonary ventilation, and response to care were monitored throughout the procedure. - The physical status of the patient was re-assessed after the procedure. After obtaining informed consent, the endoscope was passed under direct vision. Throughout the procedure, the patient's blood pressure, pulse, and oxygen saturations were monitored continuously. The Colonoscope was introduced through the mouth, and advanced to the third part of duodenum. The upper GI endoscopy was accomplished without difficulty. The patient tolerated the procedure well. Findings: The upper third of the esophagus and middle third of the esophagus were normal. LA Grade A (one or more mucosal breaks less than 5 mm, not extending between tops of 2 mucosal folds) esophagitis with no bleeding was found at the gastroesophageal junction. Diffuse mild inflammation characterized by erythema and granularity was found in the entire examined stomach. Biopsies were taken with a cold forceps for histology. The pathology specimen was placed into Bottle A. Estimated blood loss was minimal. The examined duodenum was normal. Impression: - Normal upper third of esophagus and middle third of esophagus. - LA Grade A reflux esophagitis. - Gastritis. Biopsied. - Normal examined duodenum. Recommendation: - Perform a colonoscopy today. - Await pathology results. - Repeat upper endoscopy in 3 months for surveillance. Alfa Reina D.O. Alfa Reina, 04/19/2021 10:28:07 AM This report has been signed electronically. Note Initiated On: 04/19/2021 9:54 AM Number of Addenda: 0 I attest to the content of the Intraoperative Record and orders documented therein, exceptions below {[id number]}
--- NOTE | 2021-04-19 10:30 | GI REPORT ---
Patient Name: Mayte Calhoun Procedure Date: 04/19/2021 9:53 AM Date of : 1945 Admit Type: Inpatient Age: 76 Gender: Female Attending MD: Alfa Reina DO Procedure: Colonoscopy Providers: Alfa Reina DO Referring MD: Referred Self Indications: Melena Medicines: Monitored Anesthesia Care Complications: No immediate complications. Estimated blood loss: Minimal. Estimated Blood Loss: Estimated blood loss was minimal. Procedure: Pre-Anesthesia Assessment: - Prior to the procedure, a History and Physical was performed, and patient medications, allergies and sensitivities were reviewed. The patient's tolerance of previous anesthesia was reviewed. - The risks and benefits of the procedure and the sedation options and risks were discussed with the patient. All questions were answered and informed consent was obtained. - Patient identification and proposed procedure were verified prior to the procedure by the physician, the nurse and the grinding wheel inspector. The procedure was verified in the procedure room. - Pre-procedure physical examination revealed no contraindications to sedation. - ASA Grade Assessment: IV - A patient with severe systemic disease that is a constant threat to life. - After reviewing the risks and benefits, the patient was deemed in satisfactory condition to undergo the procedure. - The anesthesia plan was to use monitored anesthesia care (MAC). - Immediately prior to administration of medications, the patient was re-assessed for adequacy to receive sedatives. - The heart rate, respiratory rate, oxygen saturations, blood pressure, adequacy of pulmonary ventilation, and response to care were monitored throughout the procedure. - The physical status of the patient was re-assessed after the procedure. After I obtained informed consent, the scope was passed under direct vision. Throughout the procedure, the patient's blood pressure, pulse, and oxygen saturations were monitored continuously. The Colonoscope was introduced through the anus and advanced to the terminal ileum. The colonoscopy was performed without difficulty. The patient tolerated the procedure well. The quality of the bowel preparation was fair. Findings: The perianal and digital rectal examinations were normal. Pertinent negatives include normal sphincter tone. The terminal ileum appeared normal. Internal hemorrhoids were found during retroflexion. The hemorrhoids were moderate. The exam was otherwise without abnormality. Impression: - Preparation of the colon was fair. - The examined portion of the ileum was normal. - Internal hemorrhoids. - The examination was otherwise normal. - No specimens collected. Recommendation: - The patient will be observed post-procedure, until all discharge criteria are met. - Advance diet as tolerated today. - Repeat colonoscopy in 1 year because the bowel preparation was suboptimal. Alfa Reina D.O. Alfa Reina, DO 04/19/2021 10:29:45 AM This report has been signed electronically. Note Initiated On: 04/19/2021 9:53 AM Number of Addenda: 0 I attest to the content of the Intraoperative Record and orders documented therein, exceptions below {[id number]}
[2021-04-19 11:46] LABS: Hematocrit (blood only) 24.1 % (37-47); Hemoglobin 7.5 g/dL (12.0-16.0); Mean Corpuscular Hgb Conc 31.1 g/dL (32-36); Mean Corpuscular Volume 96.4 fL (80-100); Mean Platelet Volume 10.7 fL (7.4-10.4); Platelet Count 182 K/uL (130-400); RDW Coefficient of Variation 21.9 % (11.5-14.5); RDW Standard Deviation 75.6 fL (36.4-46.3); White Blood Count 3.73 K/uL (4.8-10.8)
[2021-04-19] MEDS: CYANOCOBALAMIN (B-12) 500 MCG TABLET PO SCH (11:48)
[2021-04-19] MEDS: SERTRALINE HCL 100 MG TABLET PO SCH (11:48)
[2021-04-19] MEDS: PANTOprazole 40 MG TAB PO SCH (11:49)
[2021-04-19] MEDS: ASPIRIN 81 MG ECTAB PO SCH (11:49)
[2021-04-19] MEDS: FOLIC ACID 1 MG TAB PO SCH (11:49)
[2021-04-19] MEDS: FLUTICASONE PROPIONATE NA SPR 16 GM BTL SCH (11:50)
[2021-04-19] MEDS: bisacodyL 10 MG SUPP PR SCH (11:54)
[2021-04-19 12:11] LABS: Creatinine Clr Calc Pharmacy 37.5 ml/min; Est GFR (African American) 48.9 ml/min; Est GFR (Non-African American) 42.2 ml/min; Magnesium 1.2 mg/dl (1.7-2.4); Potassium 3.6 mmol/L (3.5-5.1)
--- NOTE | 2021-04-19 13:06 | Anesthesiology Progress Note ---
Date of Service April 19, 2021 Anesthesia Post Procedure Vital Signs Vital Signs: Temp Pulse Pulse Resp BP Pulse Ox 04/19/21 11:44 36.8 C 82 14 174/88 H 95 04/19/21 10:53 86 16 141/90 H 100 04/19/21 10:40 87 16 155/70 H 99 04/19/21 10:25 79 22 113/48 L 99 04/19/21 09:49 36.3 C L 90 16 184/90 H 95 04/19/21 07:29 37.2 C 78 16 166/84 H 94 04/19/21 07:19 83 04/19/21 04:48 37.1 C 78 18 119/69 94 04/19/21 00:00 37.0 C 78 18 134/77 93 04/18/21 22:54 77 04/18/21 19:52 37.4 C 83 16 136/79 94 04/18/21 14:52 37.5 C 78 18 129/68 96 Transfer of Care Handoff Completed per policy Notes Mental Status: alert / awake / arousable Patient Amnestic to Procedure: Yes Nausea / Vomiting: adequately controlled Pain: adequately controlled Airway Patency, RR, SpO2: stable & adequate BP & HR: stable & adequate Hydration State: stable & adequate Anesthetic Complications: no major complications apparent
[2021-04-19] MEDS: MAGNESIUM SULFATE / D5W 1 GM/100 ML BAG IV SCH ×2 (13:18→15:44)
--- NOTE | 2021-04-19 15:23 | Nephrology Progress Note ---
Date of Service April 19, 2021 Assessment & Plan Admission and Anticipated Discharge Date Admission Date: April 15, 2021 Subjective Subjective S---No new issues. Hgb remains stable. renal function improving without dialysis. making good amount of urine. had EGD and Wells earlier today PHYSICAL EXAMINATION: GENERAL: Elderly white female who appears chronically ill. HEENT: Mucous membranes are moist. NECK: Supple. No jugular venous distention. CHEST: Bilateral clear to auscultation. CARDIOVASCULAR: S1 and S2, irregular. Soft systolic murmur heard. ABDOMEN: Soft, nontender. EXTREMITIES: Show no edema. NEUROLOGIC: She is awake, alert, oriented x3, normal speech. Normal orientation and was able to answer complicated questions pretty well. LABORATORY TEST: K low and Creat even better ASSESSMENT AND PLAN: A 76-year-old female with extensive vascular disease and previously chronic kidney disease when she was started on chronic dialysis recently during one of the hospitalizations. I have been consulted for dialysis management. 1. Renal failure. It is surprising that her creatinine actually went down to 1.7 from 2 range despite no dialysis. She has no evidence of electrolyte imbalance. She has pleural effusion, but otherwise has no evidence of fluid overload. Given improvement in creatinine, I actually wanted to see whether she has recovered her renal function, so that she does not have to be on dialysis. To test this, we will need daily blood work in the morning. 24-hour urine creatinine for the creatinine clearance--has not been done yet. Will wait for future. Bun and creat actually got even better so no dialysis. if it remains good like this will remove the dialysis catheter over the next few days. This can be done as an outpatient if she indeed. The patient was very happy to hear this. 2. Anemia, likely GI bleed in the setting of chronic anticoagulation with Eliquis. s/p EGD and colo. Results & Data ([facility]) Vital Signs (Past 12 Hours) Vital Signs Temp Pulse Pulse Resp BP Pulse Ox 04/19/21 11:44 36.8 C 82 14 174/88 H 95 04/19/21 10:53 86 16 141/90 H 100 04/19/21 10:40 87 16 155/70 H 99 04/19/21 10:25 79 22 113/48 L 99 04/19/21 09:49 36.3 C L 90 16 184/90 H 95 04/19/21 07:29 37.2 C 78 16 166/84 H 94 04/19/21 07:19 83 04/19/21 04:48 37.1 C 78 18 119/69 94
[2021-04-19] MEDS: GABAPENTIN 100 MG CAP PO SCH (19:59)
[2021-04-19] MEDS: APIXABAN 5 MG TABLET PO SCH (19:59)
[2021-04-19] MEDS: MIRTAZAPINE TAB 15 MG TAB PO SCH (20:00)
[2021-04-19] MEDS: MONTELUKAST SODIUM 10 MG TABLET PO SCH (20:00)
--- NOTE | 2021-04-19 23:51 | Hospitalist Progress Note ---
Date of Service April 19, 2021 Assessment & Plan (1) Acute on chronic anemia: Plan: GI bleed Patient had large dark tarry bowel movement this morning History of GI bleed which occurred during her hospital stay at [facility] Mar 2020, requiring 2 U PRBC to maintain acute blood loss. Last transfusion occurred on 04/13 with hemodialysis. Now receiving blood here for hgb < 7.0. Hemoglobin on admission 6.9 Status post 1 unit PRBC during the hospital course so far Hemoglobin 7.5 today She is on Eliquis and aspirin outpatient Case discussed with vascular in [place] recommend to continue aspirin due to the recent stent unless patient has acute hemorrhage We will hold Eliquis since patient had a large dark bowel movement If hemoglobin stable and GI bleed resolved will consider to start on low-dose heparin drip while in the hospital Discussed with granddaughter in details about holding Eliquis due to recurrent episode of dark and brown stools Patient and granddaughter understand the risk of holding Eliquis that can lead to clot and stroke Gastroenterology on board EGD EGD showed mild esophagitis an Mild gastritis Plan colonoscopy showed internal hemorrhoids GI recommended daily PPI Continue to repeat upper endoscopy in 3 months Will need to repeat colonoscopy in 1 year due to suboptimal bowel preparation Resume diet as tolerated (2) PVD (peripheral vascular disease): Plan: - S/p left iliac artery stenting on 04/04/21 by vascular surgery at [place] - s/p carotid stenosis s/p CEA with bovine pericardial patch angioplasty 11/2015 - s/p left subclavian stent 03/2014 - s/p left renal artery angioplasty/stent - Continue aspirin 81 mg daily -Eliquis resumed (3) PAF (paroxysmal atrial fibrillation): Plan: - Hx of such, anticoagulated on Eliquis - Rate controlled on metoprolol 50 mg BID -Eliquis resumed (4) CKD (chronic kidney disease): Plan: - New HD, R tunneled cath placed 03/25/21, makes urine, monitor -Creatinine 1.2 today -Nephrology on board -Renal function seems to improve -Nephrology does not plan to continue hemodialyzed her -Case discussed with Dr. Mueller that plan to remove the dialysis catheter in the next few days -Continue monitor BMP (5) Carotid stenosis: Plan: - Hx of CEA stenting as per HPI - Stable, chronic -Continue aspirin (6) Subclavian artery stenosis, left: Plan: - Hs of such,stable - no lab draws/ BP in Left upper extremity -Continue aspirin (7) History of stent insertion of renal artery: Plan: - Left renal artery stent, stable (8) History of SIADH: Plan: - Na is stable on admission at 137 - Na 141 today Stable (9) Recurrent UTI: Plan: Urine culture grew gram-negative bacilli- Enterobacter cloacae Currently on Rocephin IV Urine sensitivity showed elevated resistant with Rocephin DC Rocephin and started on meropenem - (10) Hypothyroidism: Plan: Continue levothyroxine DVT ppx: teds, scds due to GI bleed CODE: Full code Dispo: We will discharge once medically stable Admission and Anticipated Discharge Date Admission Date: April 15, 2021 Subjective Patient was seen and examined for follow-up of anemia and dark tarry bowel movement Lying in bed with no acute distress Patient had colonoscopy and EGD done today that were normal Denies any chest pain, palpitation, dizziness, shortness of breath. Review of Systems Review of Systems: All systems reviewed & are unremarkable except as noted in Subjective Physical Exam Physical Exam: General- No acute distress Head- atraumatic Eyes- PERRL, EOMI, ENT- oropharynx clear Neck- supple, no JVD Lungs- clear to auscultation Heart- +murmur Abdomen- normal bowel sounds, soft, nontender Extremities- no calf tenderness Neuro- alert, oriented x 3; PERRL, EOMI; no facial palsy; no dysarthria Skin- warm & dry Results & Data Results & Data ([facility]) Vital Signs (Past 12 Hours) Vital Signs Temp Pulse Pulse Resp BP Pulse Ox 04/19/21 23:14 84 04/19/21 20:00 37.8 C H 95 H 17 163/71 H 94 04/19/21 16:31 88 04/19/21 15:42 37.5 C 85 18 159/77 H 94 04/19/21 11:44 36.8 C 82 14 174/88 H 95
[2021-04-20] MEDS ORDERED: MEROPENEM CONSULT ACTIVE PRN (03:29)
--- NOTE | 2021-04-20 03:29 | Communication Note ---
Date of Service: April 20, 2021 Pharmacy requesting to change Levaquin order by a.m. provider to ciprofloxacin for UTI indication. Documented hives reaction to ciprofloxacin as per records. Hold ciprofloxacin for now. Meropenem interim. Consider [facility] ID consult for complicated UTI. Will relay to AM provider.
[2021-04-20] MEDS: MEROPENEM 500 MG in SYRINGE 0 ML IV SCH ×3 (05:10→20:00)
[2021-04-20] MEDS: LEVOTHYROXINE SODIUM 50 MCG TABLET PO SCH (05:10)
[2021-04-20] MEDS ORDERED: CIPROFLOXACIN 250 MG TAB PO SCH (06:00)
[2021-04-20 06:44] LABS: Hematocrit (blood only) 22.6 % (37-47); Hemoglobin 7.1 g/dL (12.0-16.0); Mean Corpuscular Hemoglobin 30.2 pg (25-34); Mean Corpuscular Hgb Conc 31.4 g/dL (32-36); Mean Corpuscular Volume 96.2 fL (80-100); Platelet Count 168 K/uL (130-400); RDW Coefficient of Variation 21.7 % (11.5-14.5); RDW Standard Deviation 75.4 fL (36.4-46.3); Red Blood Count 2.35 M/uL (4.2-5.4); White Blood Count 3.11 K/uL (4.8-10.8)
[2021-04-20 06:57] LABS: Calcium 7.2 mg/dl (8.5-10.1); Creatinine Clr Calc Pharmacy 40.5 ml/min; Est GFR (African American) 53.5 ml/min; Est GFR (Non-African American) 46.2 ml/min; Potassium 3.3 mmol/L (3.5-5.1)
[2021-04-20] MEDS: APIXABAN 5 MG TABLET PO SCH ×2 (08:17→21:02)
[2021-04-20] MEDS: bisacodyL 10 MG SUPP PR SCH (08:18)
[2021-04-20] MEDS: FLUTICASONE PROPIONATE NA SPR 16 GM BTL SCH (08:18)
[2021-04-20] MEDS: PANTOprazole 40 MG TAB PO SCH (08:18)
[2021-04-20] MEDS: FOLIC ACID 1 MG TAB PO SCH (08:18)
[2021-04-20] MEDS: METOPROLOL TARTRATE 50 MG TAB PO SCH ×2 (08:18→21:01)
[2021-04-20] MEDS: CYANOCOBALAMIN (B-12) 500 MCG TABLET PO SCH (08:18)
[2021-04-20] MEDS: SERTRALINE HCL 100 MG TABLET PO SCH (08:18)
[2021-04-20] MEDS: ASPIRIN 81 MG ECTAB PO SCH (08:18)
[2021-04-20] MEDS: DOCUSATE SODIUM 100 MG CAP PO SCH ×2 (08:23→21:02)
--- NOTE | 2021-04-20 09:30 | Nephrology Progress Note ---
Date of Service April 20, 2021 Assessment & Plan Admission and Anticipated Discharge Date Admission Date: April 15, 2021 Subjective Subjective S---No new issues. Hgb remains stable. renal function improving without dialysis. making good amount of urine. Urine C/s +ve PHYSICAL EXAMINATION: GENERAL: Elderly white female who appears chronically ill. HEENT: Mucous membranes are moist. NECK: Supple. No jugular venous distention. CHEST: Bilateral clear to auscultation. CARDIOVASCULAR: S1 and S2, irregular. Soft systolic murmur heard. ABDOMEN: Soft, nontender. EXTREMITIES: Show no edema. NEUROLOGIC: She is awake, alert, oriented x3, normal speech. Normal orientation and was able to answer complicated questions pretty well. LABORATORY TEST: K low and Creat even better ASSESSMENT AND PLAN: A 76-year-old female with extensive vascular disease and previously chronic kidney disease when she was started on chronic dialysis recently during one of the hospitalizations. I have been consulted for dialysis management. 1. Renal failure. It is surprising that her creatinine actually went down to 1.7 from 2 range despite no dialysis. She has no evidence of electrolyte imba jennifer. She has pleural effusion, but otherwise has no evidence of fluid overload. Given improvement in creatinine, I actually wanted to see whether she has recovered her renal function, so that she does not have to be on dialysis. To test this, we will need daily blood work in the morning. Bun and creat actually got even better so no dialysis. Will remove the dialysis catheter at this point given that creat is pretty much almost normal with good urine. 2. Anemia, likely GI bleed in the setting of chronic anticoagulation with Eliquis. s/p EGD and colo. 3 UTI--She has long h/o complicated UTI--ESBL etc. Now +ve again. ID has been Consulted. Results & Data ([facility]) Vital Signs (Past 12 Hours) Vital Signs Temp Pulse Pulse Resp BP Pulse Ox 04/20/21 08:33 36.7 C 85 17 153/66 H 96 04/20/21 07:30 86 04/20/21 03:44 36.4 C L 82 18 166/78 H 91 04/20/21 00:00 37.0 C 77 18 147/73 H 90 04/19/21 23:14 84
--- NOTE | 2021-04-20 14:19 | Consultation ---
Date of Consultation April 20, 2021 Assessment & Plan (1) Chronic kidney failure: Pt apparently with recovery of renal fxn and no longer needs HD. Pt discussed with Dr Kelly, planning on permcath removal in OR tomorrow. Pt agreeable to permcath removal. Other vascular issues should be followed up by her regular vascular surgeon. Chronic kidney disease stage: stage 5 Qualified Code(s): N18.5 - Chronic kidney disease, stage 5 History of Present Illness Reason for Consultation: ESRD Attending Physician: Miles Amaya MD History of Present Illness 76 yo f with hx of CKD, SIADH, PAD, a fib, anemia, carotid stenosis, renal artery stenosis, hypothyroidism, admitted to [facility] from [facility] for anemia requiring transfusion, seen in consultation today for permcath removal. Pt is difficult to obtain hx from, but states she has been at [facility] for weeks and was started on HD while inpatient there via permcath approx 5-6 weeks ago. States she was d/c to rehab at [facility] and has been having HD there as well. States her last scourer told hter that her renal function has improved and she no longer needs HD and can have her permcath removed. States she will be going back to [facility] at d/c in order to build up her strength to return home with her family. States she had stents placed in her kidney artery, her L arm, and her L leg in the past and follows at [facility]. Pt denies FRASER, fever, chest pain, SOB, abd pain N/V, rest pain, claudication, other complaints. Allergies Allergy/AdvReac Type Severity Reaction Status Date / Time tramadol Allergy Unresponsiv Unverified 04/15/21 11:26 e acetaminophen [From Percocet] AdvReac Hypotension Unverified 04/15/21 11:26 amitriptyline AdvReac Unresponsiv Unverified 04/15/21 11:26 e ciprofloxacin AdvReac Hives Unverified 04/15/21 11:26 hydrochlorothiazide AdvReac Hypotension Unverified 04/15/21 11:26 nitrofurantoin AdvReac Nausea Unverified 04/15/21 11:26 oxycodone [From Percocet] AdvReac Hypotension Unverified 04/15/21 11:26 spironolactone AdvReac Hypotension Unverified 04/15/21 11:26 [From Aldactone] Home Medications Medication Instructions Recorded Confirmed Type acetaminophen 500 mg tablet 1,000 mg PO Q6H PRN 04/15/21 04/15/21 History albuterol sulfate 0.63 mg/3 mL 0.63 mg INHALATION Q4H PRN 04/15/21 04/15/21 History solution for nebulization apixaban 5 mg tablet 5 mg PO BID 04/15/21 04/15/21 History aspirin 81 mg capsule 81 mg PO DAILY 04/15/21 04/15/21 History bisacodyl 10 mg rectal suppository 10 mg PA DAILY 04/15/21 04/15/21 History cyanocobalamin (vitamin B-12) 1,000 mcg PO DAILY 04/15/21 04/15/21 History 1,000 mcg tablet dextrose 40 % oral gel (Glucose 0 ea PO ONCE 04/15/21 04/15/21 History Gel) docusate sodium 100 mg capsule 100 mg PO BID 04/15/21 04/15/21 History fluticasone propionate 50 2 spray INTRANASAL DAILY 04/15/21 04/15/21 History mcg/actuation nasal spray,suspension folic acid 1 mg tablet 1 mg PO DAILY 04/15/21 04/15/21 History gabapentin 100 mg capsule 100 mg PO HS 04/15/21 04/15/21 History levothyroxine 50 mcg capsule 50 mcg PO DAILY 04/15/21 04/15/21 History magnesium hydroxide 2,400 mg/10 mL 0 ml PO DAILY PRN 04/15/21 04/15/21 History oral suspension (Milk Of Magnesia Concentrated) melatonin 3 mg tablet 6 mg PO HS PRN 04/15/21 04/15/21 History metoprolol tartrate 50 mg tablet 50 mg PO Q12H 04/15/21 04/15/21 History mirtazapine 15 mg tablet 15 mg PO HS 04/15/21 04/15/21 History montelukast 10 mg tablet 5 mg PO HS 04/15/21 04/15/21 History ondansetron 4 mg disintegrating 4 mg PO Q6H PRN 04/15/21 04/15/21 History tablet pantoprazole 40 mg tablet,delayed 40 mg PO DAILY 04/15/21 04/15/21 History release (Protonix) polyethylene glycol 3350 17 gram 17 g PO DAILY PRN 04/15/21 04/15/21 History oral powder packet (Miralax) sertraline 100 mg tablet 100 mg PO DAILY 04/15/21 04/15/21 History Patient History Social History Smoking Status: Former smoker Hx Alcohol Use: No Hx Substance Use: No Preferred Language: Thai Communication Ability: Effective Adhesive Bandage Making Operator Required: No Beliefs That Will Affect Care: None marital status: / Current Living Situation: Rehab Current Living Situation Comment: [facility] Feels Safe at Home: Yes Safety Concerns: Feels Safe At This Time Assistive Devices: Walker Review of Systems Review of Systems: All systems reviewed & are unremarkable except as noted in HPI & below Physical Exam Constitutional: WD/WN, vitals as above + thin, cooperative and comfortable; not in distress ENMT: Ears: no hearing impairment Neck: trachea midline Respiratory: normal respiratory effort, lungs clear to auscultation Auscultation: + diminished lung sounds Cardiovascular: Rate/Rhythm: regular rate and regular rhythm Vessels: femoral pulses present, posterior tibial pulses present (nonpalpable BLE), dorsalis pedis pulses present (+1 lle, +1 RLE), brachial pulses present and radial pulses present Extremities: normal capillary refill (L 1st and 2nd toes purple) Gastrointestinal (Abdomen): Inspection/Auscultation: abdomen normal to inspection and normal bowel sounds Percussion/Palpation: abdomen soft; abdomen nontender Musculoskeletal: no cyanosis or clubbing, extremities motor strength 5/5 Skin: no rashes, warm and dry Neurologic: moves all extremities and awake; no focal motor deficits and not confused Psychiatric: A+Ox3, euthymic affect Results & Data ([facility]) Vital Signs (Past 12 Hours) Vital Signs Temp Pulse Pulse Resp BP Pulse Ox 04/20/21 11:04 36.8 C 77 18 117/69 94 04/20/21 08:33 36.7 C 85 17 153/66 H 96 04/20/21 07:30 86 04/20/21 03:44 36.4 C L 82 18 166/78 H 91
[2021-04-20] MEDS: MONTELUKAST SODIUM 10 MG TABLET PO SCH (21:01)
[2021-04-20] MEDS: GABAPENTIN 100 MG CAP PO SCH (21:01)
[2021-04-20] MEDS: MIRTAZAPINE TAB 15 MG TAB PO SCH (21:01)
--- NOTE | 2021-04-21 03:02 | Hospitalist Progress Note ---
Date of Service April 20, 2021 Assessment & Plan (1) Acute on chronic anemia: Plan: GI bleed Patient had large dark tarry bowel movement this morning History of GI bleed which occurred during her hospital stay at [facility] Mar 2020, requiring 2 U PRBC to maintain acute blood loss. Last transfusion occurred on 04/13 with hemodialysis. Now receiving blood here for hgb < 7.0. Hemoglobin on admission 6.9 Status post 1 unit PRBC during the hospital course so far Hemoglobin 7.1 today She is on Eliquis and aspirin outpatient Case discussed with vascular in [place] recommend to continue aspirin due to the recent stent unless patient has acute hemorrhage We will hold Eliquis since patient had a large dark bowel movement If hemoglobin stable and GI bleed resolved will consider to start on low-dose heparin drip while in the hospital Discussed with granddaughter in details about holding Eliquis due to recurrent episode of dark and brown stools Patient and granddaughter understand the risk of holding Eliquis that can lead to clot and stroke Gastroenterology on board EGD EGD showed mild esophagitis an Mild gastritis Plan colonoscopy showed internal hemorrhoids GI recommended daily PPI Continue to repeat upper endoscopy in 3 months Will need to repeat colonoscopy in 1 year due to suboptimal bowel preparation Clinically stable (2) PVD (peripheral vascular disease): Plan: - S/p left iliac artery stenting on 04/04/21 by vascular surgery at [place] - s/p carotid stenosis s/p CEA with bovine pericardial patch angioplasty 11/2015 - s/p left subclavian stent 03/2014 - s/p left renal artery angioplasty/stent - Continue aspirin 81 mg daily - Continue Eliquis (3) PAF (paroxysmal atrial fibrillation): Plan: - Hx of such, anticoagulated on Eliquis - Rate controlled on metoprolol 50 mg BID -Continue Eliquis (4) CKD (chronic kidney disease): Plan: - New HD, R tunneled cath placed 03/25/21, makes urine, monitor -Creatinine 1.2 today -Nephrology on board -Renal function seems to improve -Nephrology does not plan to continue hemodialyzed her -Case discussed with Dr. Mueller that plan to remove the dialysis catheter - Vascular surgery consulted - Plan to remove tunneled cath tomorrow - Will make NPO after midnight (5) Carotid stenosis: Plan: - Hx of CEA stenting as per HPI - Stable, chronic -Continue aspirin (6) Subclavian artery stenosis, left: Plan: - Hs of such,stable - no lab draws/ BP in Left upper extremity -Continue aspirin (7) History of stent insertion of renal artery: Plan: - Left renal artery stent, stable (8) History of SIADH: Plan: - Na is stable on admission at 137 - Na 141 today Stable (9) Recurrent UTI: Plan: Urine culture grew gram-negative bacilli- Enterobacter cloacae Currently on Rocephin IV Urine sensitivity showed elevated resistant with Rocephin DC Rocephin and started on meropenem Continue Meropenem Will consider to transition to PO quinolol on discharge (10) Hypothyroidism: Plan: Continue levothyroxine DVT ppx: teds, scds due to GI bleed CODE: Full code Dispo: Will discharge to rehab possible tomorrow Admission and Anticipated Discharge Date Admission Date: April 15, 2021 Subjective Patient was seen and examined for follow-up of anemia and dark tarry bowel movement Lying in bed with no acute distress Pt said that she feels fine Denies any chest pain, palpitation, dizziness, shortness of breath. Review of Systems Review of Systems: All systems reviewed & are unremarkable except as noted in Subjective Physical Exam Physical Exam: General- No acute distress Head- atraumatic Eyes- PERRL, EOMI, ENT- oropharynx clear Neck- supple, no JVD Lungs- clear to auscultation Heart- +murmur Abdomen- normal bowel sounds, soft, nontender Extremities- no calf tenderness Neuro- alert, oriented x 3; PERRL, EOMI; no facial palsy; no dysarthria Skin- warm & dry Results & Data Results & Data ([facility]) Vital Signs (Past 12 Hours) Vital Signs Temp Pulse Pulse Resp BP Pulse Ox 04/20/21 22:55 37.5 C 74 18 165/79 H 95 04/20/21 22:53 74 04/20/21 19:56 36.9 C 86 20 141/74 H 95 04/20/21 16:00 36.9 C 80 16 109/64 95 04/20/21 15:05 90
[2021-04-21] MEDS: MEROPENEM 500 MG in SYRINGE 0 ML IV SCH ×2 (04:37→11:58)
[2021-04-21] MEDS: LEVOTHYROXINE SODIUM 50 MCG TABLET PO SCH (05:38)
[2021-04-21 07:15] LABS: Hematocrit (blood only) 22.6 % (37-47); Hemoglobin 7.2 g/dL (12.0-16.0); Mean Corpuscular Hemoglobin 30.4 pg (25-34); Mean Corpuscular Hgb Conc 31.9 g/dL (32-36); Mean Corpuscular Volume 95.4 fL (80-100); Mean Platelet Volume 10.8 fL (7.4-10.4); Platelet Count 173 K/uL (130-400); RDW Coefficient of Variation 21.4 % (11.5-14.5); RDW Standard Deviation 74.1 fL (36.4-46.3); Red Blood Count 2.37 M/uL (4.2-5.4); White Blood Count 4.41 K/uL (4.8-10.8)
[2021-04-21 07:36] LABS: BUN Creatinine Ratio 15.7 (10-20); Calcium 7.3 mg/dl (8.5-10.1); Creatinine Clr Calc Pharmacy 33.2 ml/min; Est GFR (African American) 42.2 ml/min; Est GFR (Non-African American) 36.4 ml/min; Potassium 3.6 mmol/L (3.5-5.1)
--- NOTE | 2021-04-21 07:56 | History & Physical Bridge Note ---
Date of Service April 21, 2021 History & Physical Bridge Note Patient for removal of permcath. I have discussed the risks options and benefits of the procedure with the patient. The patient understands the risks options and benefits and agrees to the procedure. I have examined the patient, reviewed the History & Physical and in the interval since the performance of the History & Physical I have noted the following changes of clinical significance: no changes noted
[2021-04-21] MEDS ORDERED: fentaNYL citrate 100 MCG/2 ML VIAL ONE (08:09)
[2021-04-21] MEDS ORDERED: LIDOCAINE 1% LOCAL 20 ML VIAL ONE (08:09)
[2021-04-21] MEDS ORDERED: MIDAZOLAM HCL 1 MG/ML 2ML VIAL ONE (08:09)
--- NOTE | 2021-04-21 08:13 | Pre Anesthesia Assessment ---
Date of Service April 21, 2021 Pre Sedation Assessment Vital Signs Temp Pulse Pulse Pulse Resp BP Pulse Ox 04/21/21 08:01 94 H 17 165/90 H 94 04/21/21 04:00 37.3 C 84 20 176/81 H 91 04/20/21 22:55 37.5 C 74 18 165/79 H 95 04/20/21 22:53 74 04/20/21 19:56 36.9 C 86 20 141/74 H 95 04/20/21 16:00 36.9 C 80 16 109/64 95 04/20/21 15:05 90 04/20/21 11:04 36.8 C 77 18 117/69 94 04/20/21 08:33 36.7 C 85 17 153/66 H 96 Cardiovascular RRR, no murmur, no edema Respiratory normal respiratory effort, lungs clear to auscultation Pre-Sedation Airway Assessment Smoking Status: Former smoker Hx Sleep Apnea: No Short, Thick Neck: No Thyromental Distance: > or= 3.5 Finger Breadths Oral Cavity: + Dentures Mallampati Class: II ASA: ASA3 NPO Status Date of Last Intake of Fluids: 04/21/21 Time of Last Intake of Fluids: 00:00 Last Oral Intake of Fluids Comment: no meds this am Date of Last Intake of Solid Food: 04/21/21 Time of Last Intake of Solid Foods: 00:00 Procedure Planning Contraindications for Sedation: none Current Medications Reviewed: Yes Notes The planned sedation has been discussed with the patient. Informed Consent was obtained. I have identified the patient, determined the appropriateness of sedation and have assessed the patient immediately prior to the procedure. All medicine(s) and interventions are by my order.
--- NOTE | 2021-04-21 08:26 | Operative Report ---
Post Operative Report Pre & Post Diagnosis Operation Date: 04/19/21 16:00 Pre-Op Diagnosis: SYMPTOMATIC ANEMIA Post-Op Diagnosis: EGD: Mild Gastritis Esophagitis Colonoscopy: Poor Prep Hemorrhoids Operation Date: 04/21/21 12:00 Pre-Op Diagnosis: Status Post Perm Cath Post-Op Diagnosis: Status Post Perm Cath I identified the patient and participated in the time-out.: Yes Procedure Operation Date: 04/19/21 16:00 Actual Procedures p EGD Biopsy Cytology - Alfa Reina DO s Colonoscopy - Alfa Reina DO Operation Date: 04/21/21 12:00 Actual Procedures p Perm Catheter Removal, Moderate Sedation [id number](Right) - Shorty Kelly MD Surgeon Shorty Kelly MD Bending Press Operator none Estimated Blood Loss 0 Findings Consistent with Post-Op Diagnosis Specimens none Anesthesia Type RN Sedation Complications none Disposition Accompanied Patient To Recovery: No Disposition: Recovery Room Indications This is a 76-year-old female who has a PermCath in place. She has kidney function which has returned and no longer needs the PermCath. Removal was recommended. I have discussed the risks options and benefits of the procedure with the patient. The patient understands the risks options and benefits and agrees to the procedure. Description of Procedure The patient was taken to the angio suite and placed in the supine position. The patient was identified and a timeout performed. The right side of the neck, chest wall and catheter were prepped and draped in a sterile manner. Local anesthesia was then accomplished. Using sharp and blunt dissection, the cuff of the permcath was freed up from the surrounding fibrous tissue. The permcath and cuff were completely removed. Pressure was then applied and adequate hemostasis was obtained. A sterile dressing was then applied. The patient left the operation room in satisfactory condition and tolerated the procedure well. All needle and sponge counts were correct at the end of the procedure. I attest to the content of the Intraoperative Record and any orders documented therein. Any exceptions are noted below.
--- NOTE | 2021-04-21 08:37 | Post Anesthesia Assessment ---
Date of Service April 21, 2021 Post Sedation Assessment Vital Signs Temp Pulse Pulse Pulse Resp BP Pulse Ox 04/21/21 08:35 87 18 129/73 95 04/21/21 08:30 87 18 140/73 98 04/21/21 08:25 86 18 143/70 H 100 04/21/21 08:20 89 18 172/80 H 100 04/21/21 08:15 85 18 158/88 H 100 04/21/21 08:01 94 H 17 165/90 H 94 04/21/21 04:00 37.3 C 84 20 176/81 H 91 04/20/21 22:55 37.5 C 74 18 165/79 H 95 04/20/21 22:53 74 04/20/21 19:56 36.9 C 86 20 141/74 H 95 04/20/21 16:00 36.9 C 80 16 109/64 95 04/20/21 15:05 90 04/20/21 11:04 36.8 C 77 18 117/69 94 Recovery Score Activity: Moves 4 extremities Respiration: Deep Breath/Cough Circulation: +/-20% PreAnes Value Consciousness: Fully Awake Oxygen Saturation: > 92% On Room Air Post Anesthesia Score: 10 Discharge Sedation Level of Care: Fast Track Phase II Post Sedation Plan On clinical assessment, the patient appears to have tolerated the sedation without complications. Patient is recovering as anticipated. Patient will continue to be monitored by nursing and may be discharged when sedation discharge criteria are met per below protocol. Upon Completions of procedure up to 15 minutes continue every 5 minute vital signs and the P.A.R. score; then discharge to a Phase I or Fast Track to Phase II per the following guidelines: * Discharge Patient to appropriate Phase II area if PAR is 8 or greater or return to pre- procedure baseline. The post - procedure orders will be as directed. * If PAR score is less than 8 or not return to pre-procedure baseline then patient will follow Phase I monitoring till PAR is reached for Phase II. The Phase I may be done in procedure room or may call to secure a Phase I area. * If naloxone or flumazenil are used for reversal, hold in Phase I for continued monitoring from when last reversal dose was given for a minimum of 60 minutes or longer pending the nurse and/or physician discretion of patient condition before discharge to Phase II. Please call the Sedation Physician to re-evaluate and complete post-note for discharge to Phase II area. Do NOT discharge from procedure sedation or Phase 1 until post- sedation evaluation note is complete by procedure /sedation MD Sedation Discharge Instructions to be given to the patient at discharge to home.
[2021-04-21] MEDS: CYANOCOBALAMIN (B-12) 500 MCG TABLET PO SCH (08:51)
[2021-04-21] MEDS: bisacodyL 10 MG SUPP PR SCH (08:52)
[2021-04-21] MEDS: FLUTICASONE PROPIONATE NA SPR 16 GM BTL SCH (08:52)
[2021-04-21] MEDS: DOCUSATE SODIUM 100 MG CAP PO SCH (08:52)
[2021-04-21] MEDS: ASPIRIN 81 MG ECTAB PO SCH (08:52)
[2021-04-21] MEDS: FOLIC ACID 1 MG TAB PO SCH (08:52)
[2021-04-21] MEDS: APIXABAN 5 MG TABLET PO SCH (08:52)
[2021-04-21] MEDS: METOPROLOL TARTRATE 50 MG TAB PO SCH (08:52)
[2021-04-21] MEDS: PANTOprazole 40 MG TAB PO SCH (08:52)
[2021-04-21] MEDS: SERTRALINE HCL 100 MG TABLET PO SCH (08:52)
--- NOTE | 2021-04-21 10:39 | Discharge Summary ---
Date of Service April 21, 2021 Admission HPI Per Admitting Provider This is a 76-year-old female who has significant past medical history including PVD, PAF on Eliquis, CKD now on HD, carotiid stenosis s/p left CEA with bovine pericardial patch angioplasty 11/2015, s/p left subclavian artery stent 03/12/14, SIADH, atrophy of the right kidney, left renal artery angioplasty/stent, left subclavian artery angioplasty/stent, recurrent UTI/pyelonephritis, hypothyroidism, chronic anemia, and history of Covid. Hospital stay at [facility] for UTI from 11/15/20-11/17/20 Patient was referred there by infectious disease for antibiotic therapy for multidrug- resistant UTI which had gone on since June. Daughter notes extreme confusion, weakness, and incontinece are her presenting sx for a UTI. Hospital stay at [facility] from 03/03/21 - 04/04/21. where she presented for abdominal pain with ischemic necrosis of small bowel. CTAP revealed pneumatosis intestinalis in the distal small bowel and descending colon, she was positive for rotavirus. Pt underwent exp lapartomy on 03/05/21 which showed dilated colon with melanosis. No ischemic bowel was identified. Her postop course was complicated by acute respiratory failure, multifocal pneumonia, acute renal failure requiring, A. fib with RVR, delirium, GI bleeding, and multiple electrolyte abnormalities. Her Eliquis during that time had been placed on hold due to GI bleed. And she required 2 units of PRBCs. Patient completed course of antibiotics of cefepime and vancomycin for HCAP in the LLL, and possibly in the RLL. She continued to have diarrhea so cholestyramine was started on 03/31/2021, and the dose increased on 04/02/21. Still is having watery stools. 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 Transfer was initiated to [facility] for further intervention by vascular surgery. Hospital stay at [facility] from - 04/14/21 for vascular surgery, a left iliac stent was placed and was on heparin drip for left iliac thrombus. She was discharged to [facility] yesterday, on 04/14/21. Today the patient was transferred to the ER for low hgb count on routine blood draw. She does not have any complaints currently and didn't understand why she was brought to the ER vs to the [facility] for a transfusion and then back to [facility]. Pt denies shortness of breath, STEWART, fever, chills, sweats, cough, s putum production, abd pain, n/v, admits to watery stools which have been going on for a few weeks. She was found to have a Hgb of 6.8 and has been ordered 1 U of PRBC. She was also noted to have a Right pleural effusion and therefore due to possible volume overload, was decided to be admitted to monitoring. Both the patient and her daughter who is present at bedside, are agreeable to this. Family Hx: Father: HTN, Stroke - Mother: DM - Sister: Heart disease, alive Brother: DM II Surgical Hx: as above Social: No smoking or alcohol Admission Exam Per Admitting Provider General: awake, alert, no apparent distress, + palor Head: Normocephalic, atraumatic ENT: PERRL, EOMI, no pharyngeal exudate, mucous membranes moist Chest: Diminished breath sounds at right base with crackles, absent in RLL, on 3L via nc with sats 99% Cardiac: Regular rate and rhythm, + holosystolic grade III murmur, no JVD, normal peripheral pulses, good capillary refill Abdominal: NABS x 4 quadrants, previous scar well healing, soft, nondistended, nontender to palpation, no rebound or guarding Extremities: Normal inspection, no peripheral edema or erythema, calfs nontender to palpation Psych: Normal mood and affect Neuro: AAO x 3, strength intact bilaterally and rated 4/5 in all extremities, no gross motor deficits, speech is clear, no peripheral sensory deficits Principal Diagnosis Acute on chronic anemia Gastrointestinal bleeding Chronic kidney disease Urinary tract infection Discharge Exam Constitutional + well hydrated; no acute distress Elderly woman Eyes PERRL, conjunctivae normal, anicteric sclerae ENMT external ear and nose normal, oropharynx normal Respiratory normal respiratory effort, lungs clear to auscultation Cardiovascular Rate/Rhythm: regular rate and regular rhythm S1 S2 Gastrointestinal (Abdomen) normal bowel sounds, soft, nontender, no hepatosplenomegaly Neurologic PERRL, EOMI, accommodation nl, no face palsy, no dysarthria Psychiatric A+Ox3, euthymic affect Discharge Data Allergies Allergy/AdvReac Type Severity Reaction Status Date / Time tramadol Allergy Unresponsiv Unverified 04/15/21 11:26 e acetaminophen [From Percocet] AdvReac Hypotension Unverified 04/15/21 11:26 amitriptyline AdvReac Unresponsiv Unverified 04/15/21 11:26 e ciprofloxacin AdvReac Hives Unverified 04/15/21 11:26 hydrochlorothiazide AdvReac Hypotension Unverified 04/15/21 11:26 nitrofurantoin AdvReac Nausea Unverified 04/15/21 11:26 oxycodone [From Percocet] AdvReac Hypotension Unverified 04/15/21 11:26 spironolactone AdvReac Hypotension Unverified 04/15/21 11:26 [From Aldactone] Consultations 04/15/21 12:35 ED Decision to Admit Stat 04/15/21 16:34 Consult Nephrology Routine 04/16/21 09:15 Consult Gastroenterology Routine 04/20/21 09:22 Consult Vascular Surgery Routine Procedures Performed Operation Date: 04/19/21 16:00 Actual Procedures p EGD Biopsy Cytology - Alfa Reina DO The upper third of the esophagus and middle third of the esophagus were normal. LA Grade A (one or more mucosal breaks less than 5 mm, not extending between tops of 2 mucosal folds) esophagitis with no bleeding was found at the gastroesophageal junction. Diffuse mild inflammation characterized by erythema and granularity was found in the entire examined stomach. Biopsies were taken with a cold forceps for histology. The pathology specimen was placed into Bottle A. Estimated blood loss was minimal. The examined duodenum was normal. Impression: - Normal upper third of esophagus and middle third of esophagus. - LA Grade A reflux esophagitis. - Gastritis. Biopsied. - Normal examined duodenum. Recommendation: - Perform a colonoscopy today. - Await pathology results. - Repeat upper endoscopy in 3 months for surveillance. s Colonoscopy - Alfa Reina DO The perianal and digital rectal examinations were normal. Pertinent negatives include normal sphincter tone. The terminal ileum appeared normal. Internal hemorrhoids were found during retroflexion. The hemorrhoids were moderate. The exam was otherwise without abnormality. Impression: - Preparation of the colon was fair. - The examined portion of the ileum was normal. - Internal hemorrhoids. - The examination was otherwise normal. - No specimens collected. Recommendation: - The patient will be observed post-procedure, until all discharge criteria are met. - Advance diet as tolerated today. - Repeat colonoscopy in 1 year because the bowel preparation was suboptimal. Operation Date: 04/21/21 12:00 Actual Procedures p Perm Catheter Removal, Moderate Sedation [id number](Right) - Shorty Kelly MD Ordered Studies 04/15/21 16:23 US effusion-chest/mediastinum Stat Hospital Course (1) Acute on chronic anemia: Patient was admitted from [facility] for Hb of 6.9 Had bloody BM in the hosptial History of GI bleed which occurred during her hospital stay at [facility] Mar 2020, requiring 2 U PRBC to maintain acute blood loss. Last transfusion occurred on 04/13 with hemodialysis. Now receiving blood here for hgb < 7.0. She is on Eliquis and aspirin outpatient Previous Provider discussed with vascular in [place] recommend to continue aspirin due to the recent stent unless patient has acute hemorrhage Eliquis was held briefly initially Had EGD and colonoscopy with EGD showing mild esophagitis, mild gastritis and colonoscopy showed internal hemorrhoids (Detailed findings above) Continue daily PPI Continue to repeat upper endoscopy in 3 months Will need to repeat colonoscopy in 1 year due to suboptimal bowel preparation Eliquis has been resumed. No bloody BM so far Got 1 PRBC Hb has been stable in 7s since (2) PVD (peripheral vascular disease): S/p left iliac artery stenting on 04/04/21 by vascular surgery at [place] s/p carotid stenosis s/p CEA with bovine pericardial patch angioplasty 11/2015 s/p left subclavian stent 03/2014 s/p left renal artery angioplasty/stent Continue aspirin 81 mg daily Continue Eliquis (3) PAF (paroxysmal atrial fibrillation): Anticoagulated on Eliquis Rate controlled on metoprolol 50 mg BID (4) CKD (chronic kidney disease): Was started on HD recently, R tunneled cath placed 03/25/21 Renal function improved while inpatient Nephrology determined no need for HD at this time Hence, HD catheter removed today Patient still needs to follow up with nephro for continued management and monitoring (5) Carotid stenosis: (6) Subclavian artery stenosis, left: Continue aspirin (7) History of stent insertion of renal artery: (8) History of SIADH: Na is stable on admission at 137 Na 139 today Stable (9) Recurrent UTI: Urine culture grew gram-negative bacilli- Enterobacter cloacae Patient reported to me today that she had dysuria on presentation Hence will continue meropenem at rehab to complete treatment Patient needs to follow up with ID due to recurrent UTI. (10) Hypothyroidism: Continue levothyroxine Total Time Total Time Spent Total Time Spent (In Minutes): 50 Total Time Includes: Examination of the Patient, Discharge Planning, Medication Reconciliation, Communication With Other Providers and Other (Called Dr Golden at [facility] for verbal handoff) Discharge Plan Discharge Items Patient Disposition: Transfer Inpatient Rehab Fac Reason For Visit: SYMPTOMATIC ANEMIA Discharge Diagnosis: Acute on chronic anemia Gastrointestinal bleeding Chronic kidney disease Urinary tract infection Condition on Discharge: Good Activity: Resume your previous activity Non-emergency contact: Primary Care Provider and Airplane Mechanic Call non-emergency contact if: you have any medication questions and your symptoms worsen Follow-up/Referrals: PCP,NO [Primary Care Provider] - Diet: Heart Healthy Addtl Attending Provider Instructions: Mrs Santos You were brought to the hospital from rehab for low hemoglobin level. You also had a bloody bowel movement while in the hospital. You received a unit of blood and had upper endoscopy and colonoscopy. These did not show active bleeding. Your hemoglobin has remained stable for now. Your renal function improved and your hemodialysis catheter was discontinued. The life insurance salesperson office will arrange outpatient labs and it is very important that you follow up with them. You will need repeat upper endoscopy in 3 months by the Security Shift Supervisor. You also had enterobacter Urinary infection and currently on meropenem for another 6 days to complete treatment You need to follow up with Infectious disease outpatient for these recurrent urinary infection. Please ensure follow up with your Primary Doctor as well Pending Studies at Discharge: No Stand-Alone Forms: My [facility] Skilled Items Patient informed of condition?: Yes DNR: No Discharge Level of Care: Acute rehab Communicable Disease: No Discharge Prognosis: Stable Lines: None Urinary Catheter: No Medications and DC Order Prescriptions: New meropenem 500 mg recon soln 500 mg IV Q8H 6 Days RF: 0 Continued albuterol sulfate 0.63 mg/3 mL Solution For Nebulization 0.63 mg INHALATION Q4H PRN (Reason: Shortness Of Breath) RF: 0 polyethylene glycol 3350 [Miralax] 17 gram Powder In Packet 17 g PO DAILY PRN (Reason: Constipation) RF: 0 dextrose [Glucose Gel] 40 % Gel 0 ea PO ONCE RF: 0 sertraline 100 mg Tablet 100 mg PO DAILY RF: 0 cyanocobalamin (vitamin B-12) 1,000 mcg Tablet 1,000 mcg PO DAILY RF: 0 melatonin 3 mg Tablet 6 mg PO HS PRN (Reason: Sleep) RF: 0 acetaminophen 500 mg Tablet 1,000 mg PO Q6H PRN (Reason: Pain) RF: 0 bisacodyl 10 mg Suppository 10 mg [place] DAILY RF: 0 pantoprazole [Protonix] 40 mg Tablet,Delayed Release (Dr/Ec) 40 mg PO DAILY RF: 0 metoprolol tartrate 50 mg Tablet 50 mg PO Q12H RF: 0 docusate sodium 100 mg Capsule 100 mg PO BID RF: 0 folic acid 1 mg Tablet 1 mg PO DAILY RF: 0 montelukast 10 mg Tablet 5 mg PO HS RF: 0 mirtazapine 15 mg Tablet 15 mg PO HS RF: 0 gabapentin 100 mg Capsule 100 mg PO HS RF: 0 ondansetron 4 mg Tablet,Disintegrating 4 mg PO Q6H PRN (Reason: Pain) RF: 0 fluticasone propionate 50 mcg/actuation [place],Suspension 2 spray INTRANASAL DAILY RF: 0 levothyroxine 50 mcg Capsule 50 mcg PO DAILY RF: 0 apixaban 5 mg Tablet 5 mg PO BID RF: 0 aspirin 81 mg Capsule 81 mg PO DAILY RF: 0 Discontinued magnesium hydroxide [Milk Of Magnesia Concentrated] 2,400 mg/10 mL Suspension 0 ml PO DAILY PRN (Reason: Mouth Irritation) RF: 0 Discharge Orders: Discharge Order (Routine); Ordered 04/21/21 Ordered By: Patricia Piña Admission Data Admit Date/Time: 04/15/21 12:42 Attending Provider: Patricia Piña I. Admit Provider: Ana Daniel Primary Care Provider: PCP,NO Other Providers: [facility] ; Miles Amaya ; Ana Daniel ; Francesco Mueller ; Guerrero Musa ; Shorty Kelly
== END 2021-04-21 12:24 | DRG 982 ==
LOC: ED 10:33 → SUATTDRO 12:42 → EDINP 12:42 → 2S 16:33